=== PATIENT | female | born 1950 | race Hispanic/Latino ===

== ENCOUNTER 2019-03-17 06:58 | Emergency (ER) | payer OTHER, BC ==
--- OUTSIDE RECORDS SUMMARY | 2019-03-17 07:01 | XMS REPORT ---
:1950 Author Organization eClinicalWorks Care Team Providers Name Role Phone Kerry Lou Provider Role Unavailable Allergies, Adverse Reactions, Alerts Substance Reaction Event Type codeine Info Not Available Drug Allergy Problems Problem Type Condition Code Onset Dates Condition Status Problem Hypercalcemia E83.52 Active Problem Thrombocytosis D47.3 Active Problem Vitamin D deficiency E55.9 Active Problem Rash and nonspecific skin eruption R21 Active Problem Pain, joint, knee, left M25.562 Active Problem Essential hypertension I10 Active Problem Synovial cyst of popliteal space M71.22 Active [Tyson], left knee Problem Sensation of lump in throat R22.1 Active Problem 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 Active Problem Left sciatic nerve pain M54.32 Active Problem Allergic rhinitis, unspecified J30.9 Active seasonality, unspecified trigger Assessment Rash and nonspecific skin eruption R21 Active Assessment Hypertension, unspecified type I10 Active Problem Gastroesophageal reflux disease, K21.9 Active esophagitis presence not specified Problem Sinus problem J34.9 Active Problem Hypertension, unspecified type I10 Active Problem Allergic rhinitis, unspecified J30.9 Active Problem Therapeutic drug monitoring Z51.81 Active Problem Reflux K21.9 Active Medications Medication Code Code Instructions Start End Status Dosage System Date Date Amlodipine [facility] 97949987424 5 MG Orally Nov 22, Active 1 tablet Besylate Once a day 2017 PreserVision [facility] [address]-11 Active not defined [facility] Triamcinolone [facility] 58201285809 0.1 % Dec 20, Active 1 application Acetonide Externally 2019 to affected Twice a day area Vitamin D-3 [facility] [address]67-[address] Active not defined Vitamin C [facility] 41768-[address]80 Active not defined Ketoconazole [facility] 69145892630 2 % Externally Dec 10, Nov Inactive 1 application Once a day 2018 22, to affected 2019 area Zantac [facility] [address]-83 Active not defined Metoprolol [facility] 35141628898 25 mg Orally Dec 20, Active 1 capsule Succinate Once a day 2018 Losartan [facility] 20580355423 50 MG Orally Inactive 1 tablet Potassium Once a day Results No Known Results Summary Purpose eClinicalWorks Submission
--- OUTSIDE RECORDS SUMMARY | 2019-03-17 07:01 | XMS REPORT ---
:1950 [facility] Address [address] [place] [address] Care Team Providers Name Role Phone Unavailable Unavailable Unavailable Payers Payer Name Policy Type Policy Number Effective Date Expiration Date Problems This patient has no known problems. Allergies, Adverse Reactions, Alerts Allergy Name Allergy Status Severity Reaction(s) Onset Inactive Treating Comments Type Date Date Clinician morphine DA Active HI 2019-02 00:00:0 0 codeine DA Active 2019-02 00:00:0 0 clavulanic DA Active HI 2019-02 acid 00:00:0 0 amoxicillin DA Active HI 2019-02 00:00:0 0 SEASONAL DA Active HI 2019-02 00:00:0 0 Medications This patient has no known medications. Results Test Description Test Time Test Comments Text Results Atomic Results Result Comments - MRI JNT W/O CONT LT 2019-02-07 08:26:00 Patient Name: GERSON VALLEJO Unit No: [id number] EXAMS: CPT CODE: [id number] MRI JNT W/[place] [address] MRI OF THE LEFT KNEE DIAGNOSIS: 1. Complex macerated tear of the posterior horn of the medial meniscus near the meniscal root. Partial extrusion of the body of the meniscus is seen with degenerative signal. 2. Large effusion in the prepatellar bursa with bursitis. 3. 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 A moderate to large joint effusion is present without evidence for a loose body. There is a moderate popliteal cyst which contains irregular low signal most consistent with debris. COMMENT: COMPARISON: No prior exams available. Scans were performed in the sagittal, axial and coronal planes utilizing T1, spin density with fat saturation and T2-weighted pulse sequences. Chondromalacia is present as noted. No bony abnormalities are seen. The body and posterior horn the medial meniscus is abnormal as described. There is abnormal signal in the anterior root of the lateral meniscus most consistent with degeneration but possibly representing a tear. The posterior horn of the lateral meniscus and anterior horn of the medial meniscus are within normal limits in appearance. No abnormality is seen involving the anterior or posterior cruciate or medial or lateral collateral ligaments. The quadriceps and patellar tendons appear normal. at 0826 Reported and signed by: Lucas Kelly MD CC: Naila Ng MD Technologist: Star Galvan(R) Transcribed D/ (825) Gaetano.SHAYYL [facility] NAME: GERSON VALLEJO [address] [place] [address] PHYS: Naila Syed MD : 1950 AGE: 69 SEX: F [place] [address] LOC: Y.MRI PHONE #: [phone] EXAM DATE: 02/06/2019 STATUS: DEP CLI FAX #: [phone] RAD #: D/C DT PAGE 1 Signed Report Patient Name: GERSON VALLEJO Unit No: [id number] EXAMS: CPT CODE: [id number] MRI LW JNT W/[place] [address] <Continued> Orig Print D/T: S: 02/07/2019 (829) [facility] NAME: GERSON VALLEJO [address] [place] [address] PHYS: Naila Syed MD : 1950 AGE: 69 SEX: F [place] [address] LOC: Y.MRI PHONE #: [phone] EXAM DATE: 02/06/2019 STATUS: DEP CLI FAX #: [phone] RAD #: D/C DT PAGE 2 Signed Report
--- OUTSIDE RECORDS SUMMARY | 2019-03-17 07:01 | XMS REPORT ---
:1950 Author Organization eClinicalWorks Care Team Providers Name Role Phone ReedRolando Provider Role Unavailable Allergies, Adverse Reactions, Alerts Substance Reaction Event Type codeine Info Not Available Drug Allergy Problems Problem Type Condition Code Onset Dates Condition Status Assessment Synovial cyst of popliteal space M71.22 Active [Tyson], left knee Assessment 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 Active Problem Synovial cyst of popliteal space M71.22 Active [Tyson], left knee Problem 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 Active Problem Pain, joint, knee, left M25.562 Active Assessment Pain, joint, knee, left M25.562 Active Assessment Left sciatic nerve pain M54.32 Active Problem Left sciatic nerve pain M54.32 Active Medications Medication Code System Code Instructions Start Date End Date Status Dosage losartan NDC 0 Active not defined Zantac [facility] [address] Active not defined -01 Results No Known Results Summary Purpose [employer] Submission
--- OUTSIDE RECORDS SUMMARY | 2019-03-17 07:02 | XMS REPORT ---
:1950 Author Organization eClinicalWorks Care Team Providers Name Role Phone Rolando Reed Provider Role Unavailable Allergies, Adverse Reactions, Alerts Substance Reaction Event Type codeine Info Not Available Drug Allergy Problems Problem Type Condition Code Onset Dates Condition Status Assessment Patellar bursitis of left knee M70.52 Active Problem Vitamin D deficiency E55.9 Active Assessment 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 Active Problem Thrombocytosis D47.3 Active Assessment Synovial cyst of popliteal space M71.22 Active [Tyson], left knee Problem Sensation of lump in throat R22.1 Active Problem 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 Active Problem Left sciatic nerve pain M54.32 Active Problem Lumbago with sciatica, left side M54.42 Active Problem Other chronic pain G89.29 Active Assessment Pain, joint, knee, left M25.562 Active Problem Patellar bursitis of left knee M70.52 Active Assessment Left sciatic nerve pain M54.32 Active Problem Pain, joint, knee, left M25.562 Active Problem Synovial cyst of popliteal space M71.22 Active [Tyson], left knee Problem Rash and nonspecific skin eruption R21 Active Problem Essential hypertension I10 Active Problem Allergic rhinitis, unspecified J30.9 Active seasonality, unspecified trigger Problem Hypertension, unspecified type I10 Active Problem Allergic rhinitis, unspecified J30.9 Active Problem Gastroesophageal reflux disease, K21.9 Active esophagitis presence not specified Problem Reflux K21.9 Active Problem Hypercalcemia E83.52 Active Problem Therapeutic drug monitoring Z51.81 Active Problem Sinus problem J34.9 Active Medications Medication Code Code Instructions Start End Status Dosage System Date Date Vitamin C [facility] [address] Active not defined Vitamin D-3 [facility] [address]602-[address]82 Active not defined Triamcinolone [facility] 86502461107 0.1 % Dec 20, Active 1 application Acetonide Externally 2019 to affected Twice a day area Metoprolol [facility] 80586842261 25 mg Orally Dec 20, Active 1 capsule Succinate Once a day 2019 PreserVision [facility] [address]-93 Active not defined [facility] Gabapentin [facility] 10622400743 100 MG Orally December Active 1 capsule Three times a , 2019 Zantac [facility] [address]-13 Active not defined Amlodipine [facility] 56384814756 5 MG Orally Nov 22, Active 1 tablet Besylate Once a day 2017 Results No Known Results Summary Purpose eClinicalWorks Submission
--- OUTSIDE RECORDS SUMMARY | 2019-03-17 07:02 | XMS REPORT ---
:1950 Author Organization eClinicalWorks Care Team Providers Name Role Phone Lou Payne Provider Role Unavailable Allergies No Known Allergies Problems Problem Type Condition Code Onset Dates Condition Status Problem Sensation of lump in throat R22.1 Active Problem 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 Active Problem Left sciatic nerve pain M54.32 Active Problem Lumbago with sciatica, left side M54.42 Active Problem Other chronic pain G89.29 Active Problem Patellar bursitis of left knee M70.52 Active Problem Pain, joint, knee, left M25.562 [...] Problem Therapeutic drug monitoring Z51.81 Active Problem Vitamin D deficiency E55.9 Active Problem Sinus problem J34.9 Active Problem Thrombocytosis D47.3 Active Medications No Known Medications Results No Known Results Summary Purpose eClinicalWorks Submission
--- OUTSIDE RECORDS SUMMARY | 2019-03-17 07:02 | XMS REPORT ---
:1950 Author Organization eClinicalWorks Care Team Providers Name Role Phone Rolando Reed Provider Role Unavailable Allergies, Adverse Reactions, Alerts Substance Reaction Event Type Metoprolol Succinate ER HAs; bloating Drug Allergy Losartan Potassium Info Not Available Drug Allergy Problems Problem Type Condition Code Onset Dates Condition Status Problem Sensation of lump in throat R22.1 Active Problem 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 Active Problem Left sciatic nerve pain M54.32 Active Problem Lumbago with sciatica, left side M54.42 Active Problem Other chronic pain G89.29 Active Assessment Pain, joint, knee, left M25.562 Active Assessment Patellar bursitis of left knee M70.52 Active Problem Patellar bursitis of left knee [...] Problem Vitamin D deficiency E55.9 Active Assessment Left sciatic nerve pain M54.32 Active Problem Sinus problem J34.9 Active Problem Thrombocytosis D47.3 Active Medications Medication Code Code Instructions Start End Status Dosage System Date Date Lisinopril [facility] 85136299276 10 MG Orally Active 1 tablet Once a day PreserVision [facility] [address]-70 Active not defined [facility] Vitamin C [facility] [address]46[address] Active not defined Amlodipine [facility] 10660772064 5 MG Orally Nov 22, Active 1 tablet Besylate Once a day 2017 Gabapentin [facility] 70347343157 100 MG Orally December Active 1 capsule Three times a 13, day 2018 Zantac [facility] [address]-55 Active not defined Metoprolol [facility] 61956340081 25 mg Orally Dec 20, Active 1 capsule Succinate Once a day 2018 Vitamin D-3 [facility] [address]10-[address]79 Active not defined Triamcinolone [facility] 32479066055 0.1 % Dec 20, Active 1 application Acetonide Externally 2018 to affected Twice a day area Results No Known Results Summary Purpose eClinicalWorks Submission
--- OUTSIDE RECORDS SUMMARY | 2019-03-17 07:02 | XMS REPORT ---
:1950 Author Organization eClinicalWorks Care Team Providers Name Role Phone Lou Payne Provider Role Unavailable Allergies, Adverse Reactions, Alerts Substance Reaction Event Type Metoprolol Succinate ER HAs; bloating Drug Allergy Losartan Potassium Info Not Available Drug Allergy Problems Problem Type Condition Code Onset Dates Condition Status Assessment Lumbago with sciatica, left side M54.42 Active Assessment Other chronic pain G89.29 Active Problem Vitamin D deficiency E55.9 Active Assessment Pain in left knee M25.562 Active Problem Thrombocytosis D47.3 Active Assessment Dysuria R30.0 Active Problem Sensation of lump in throat R22.1 Active Problem 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 Active Problem Left sciatic nerve pain M54.32 Active Problem Lumbago with sciatica, left side M54.42 Active Problem Other chronic pain G89.29 Active Assessment Essential hypertension I10 Active Problem Patellar bursitis of left knee M70.52 Active Assessment Suprapubic pain R10.2 Active Problem Pain, joint, knee, left M25.562 [...] Status Dosage System Date Date Vitamin C [facility] [address] Active not defined Amlodipine ND 63699236634 5 MG Orally Nov 22, Active 1 tablet Besylate Once a day [address] [facility] 32015831995 25 mg Orally Dec 20, Active 1 capsule Succinate Once a day [address] [facility] 69951280192 0.1 % Dec 20, Active 1 application Acetonide Externally 2019 to affected Twice a day area Zantac [facility] [address]-91 Active not defined Vitamin D-[address] [facility] 8[address] Active not defined Gabapentin [facility] 19011526878 100 MG Orally December Active 1 capsule Three times a [address] [facility] 66136739355 10 MG Orally Active 1 tablet Once a day PreserVision [facility] [address]-02 Active not defined ARED[facility] Results Name Result Date Reference Range Unit Abnormality Flag Urine Dip Stick ----Appearance Clear 20190109 ----SP. Gr 1.010 20190109 ----pH 7.0 20190109 ----Ketone Negative 20190109 ----Glucose Negative 20190109 ----Blood Negative 20190109 ----Protein Negative 20190109 ----Nitrite Negative 20190109 ----Leukocytes Negative 20190109 Summary Purpose eClinicalWorks Submission
[2019-03-17 07:57] LABS: Absolute Lymphocytes (CBC) 2.2 K/uL (0.7-4.9); Absolute Monocytes 0.5 K/uL (0.1-1.3); Absolute Neutrophil 3.9 K/uL (1.8-8.0); Basophils % 0.7 % (0-1.3); Eosinophils % 1.8 % (0-4.4); Hematocrit 40.2 % (36.0-45.0); Lymphocytes % 32.3 % (15.3-44.8); MPV 7.3 fL (7.6-11.3); Monocytes % 6.9 % (3.3-12.3); RBC Red Blood Cell Count 4.32 M/uL (3.86-4.86)
--- NOTE | 2019-03-17 08:02 | RAD REPORT ---
EXAM DESCRIPTION: RAD - Chest Single View - 03/17/2019 7:37 am CLINICAL HISTORY: Chest pain COMPARISON: February 2017 TECHNIQUE: AP portable chest image was obtained 0727 hours . FINDINGS: No focal lung parenchymal process. Lung markings are similar to comparison. Heart and vasc ulature are normal. No measurable pleural effusion and no pneumothorax. No acute bony abnormality see n. No acute aortic findings suspected. IMPRESSION: No acute cardiopulmonary process. No significant interval change.
[2019-03-17] MEDS ORDERED: MAGNE/ALUM HYDROXD 30 ML UCUP ONE (08:09)
[2019-03-17] MEDS ORDERED: LIDOCAINE VISCOUS 2% SOLN 15 ML UDC ONE (08:09)
[2019-03-17 08:19] LABS: Potassium 3.9 mmol/L (3.5-5.1); Troponin (Emerg Dept Use Only) 0.03 ng/mL (0.0-0.045)
--- NOTE | 2019-03-17 10:26 | ER ---
Nurse's Notes [facility] Name: Zee Buenrostro Age: 69 yrs Sex: Female : 1950 Arrival Date: 03/17/2019 Time: 07:01 Bed 20 Private MD: Lou Payne Diagnosis: Chest pain, unspecified;Gastro-esophageal reflux disease Presentation: 03/17 07:12 Presenting complaint: Chest pain that radiates to upper back and SOB x 1 week, worse hb since 0300 today. Transition of care: patient was not received from another setting of care. Onset of symptoms was March 17, 2019. Risk Assessment: Do you want to hurt yourself or someone else? Patient reports no desire to harm self or others. Care prior to arrival: Medication(s) given: ASA, 81 mg, x 1. 07:12 Method Of Arrival: Ambulatory hb 07:12 Acuity: ELHAM 3 hb 07:15 Initial Sepsis Screen: Does the patient meet any 2 criteria? No. Patient's initial bp sepsis screen is negative. Does the patient have a suspected source of infection? No. Patient's initial sepsis screen is negative. Triage Assessment: 07:15 General: Appears in no apparent distress. comfortable, Behavior is cooperative, bp appropriate for age, anxious. Pain: Complains of pain in chest. Historical: - Allergies: 07:14 Augmentin; hb 07:14 Codeine; hb 07:14 Medrol; hb 07:14 Morphine; hb - Home Meds: 07:14 losartan 50 mg Oral tab 1 tab once daily [Active]; omeprazole 20 mg Oral cpDR 1 cap hb once daily [Active]; - PMHx: 07:14 GERD; Hypertension; Issues with Pancrease; hb - PSHx: 07:14 Cholecystectomy; Hysterectomy; breast reduction; back surg; hb - Immunization history:: Adult Immunizations up to date. - Social history:: Smoking status: Patient/guardian denies using tobacco. - Ebola Screening: : No symptoms or risks identified at this time. - Family history:: not pertinent. - Hospitalizations: : No recent hospitalization is reported. Screenin:14 Abuse screen: Denies threats or abuse. Denies injuries from another. Nutritional hb screening: No deficits noted. Tuberculosis screening: No symptoms or risk factors identified. 07:15 Fall Risk None identified. bp Assessment: 07:15 General: Appears in no apparent distress. comfortable, Behavior is cooperative, bp appropriate for age, anxious. Pain: Complains of pain in chest Pain does not radiate. Pain began suddenly. Neuro: Level of Consciousness is awake, alert, obeys commands, Oriented to person, place, time, situation, Appropriate for age. Cardiovascular: Rhythm is sinus rhythm. Respiratory: Airway is patent Respiratory effort is even, unlabored, Respiratory pattern is regular, symmetrical. GI: No deficits noted. : No signs and/or symptoms were reported regarding the genitourinary system. EENT: No deficits noted. Derm: No deficits noted. Musculoskeletal: Circulation, motion, and sensation intact. Range of motion: intact in all extremities. 08:10 Reassessment: ALL CURRENT ORDERS COMPLETED, RESULTS PENDING. VS STABLE ON MONITOR. bp 10:33 Reassessment: PT D/C HOME AMBULATORY WITH FAMILY, DX WITH GERD AND NONSPECIFIC CHEST bp PAIN. Vital Signs: 07:13 BP 194 / 78; Pulse 78; Resp 16; Temp 98.3; Pulse Ox 100% on R/A; Weight 77.11 kg; hb Height 5 ft. 3 in. (160.02 cm); Pain 5/10; 08:10 BP 162 / 64; Pulse 70; Resp 14; Pulse Ox 97% ; bp 09:18 BP 161 / 86; Pulse 63; Resp 18; Temp 97.4(TE); Pulse Ox 97% on R/A; mh5 10:05 BP 162 / 63; Pulse 65; Resp 18; Temp 97.8(O); Pulse Ox 97% on R/A; mh5 10:26 BP 149 / 69; Pulse 66; Resp 16; Temp 98; Pulse Ox 100% ; bp 07:13 Body Mass Index 30.11 (77.11 kg, 160.02 cm) hb ED Course: 07:01 Patient arrived in ED. as 07:01 Lou Payne MD is Private Physician. as 07:06 Moo Simmons MD is Attending Physician. rn 07:13 Triage completed. hb 07:13 Arm band placed on. hb 07:15 Reno Forde, RN is Primary Nurse. bp 07:15 EKG done, by breeder hen service technician. reviewed by Moo Simmons MD. at1 07:36 X-ray completed. Portable x-ray completed in exam room. Patient tolerated procedure sw well. 07:37 XRAY Chest (1 view) In Process Unspecified. EDMS 07:41 Patient has correct armband on for positive identification. Placed in gown. Bed in low bp position. Call light in reach. Side rails up X2. Adult w/ patient. media monitor on. Pulse ox on. NIBP on. 07:50 Initial lab(s) drawn, by pa, sent to lab. [facility] 10:10 EKG done, by breeder hen service technician. reviewed by Moo Simmons MD repeat EKG. at1 10:28 No provider procedures requiring assistance completed. IV discontinued, intact, bp bleeding controlled, No redness/swelling at site. Pressure dressing applied. Patient maintains SpO2 saturation greater than 95% on room air. Administered Medications: 07:30 Drug: GI Cocktail without - (Maalox Suspension 30 ml, Lidocaine Liquid 2 % 15 bp ml) Route: PO; 09:21 Follow up: Response: Marked relief of symptoms bp Outcome: 10:25 Discharge ordered by . rn 10:33 Discharged to home ambulatory, with family. bp 10:33 Condition: stable 10:33 Discharge instructions given to patient, Instructed on discharge instructions, follow up and referral plans. Demonstrated understanding of instructions, follow-up care. 10:35 Patient left the ED. bp Signatures: Dispatcher [employer] EDDE Loly Curiel Roman, MD MD rn Gonzales, Amanda, experimental rocket sled mechanic EKG Tat1 Kristie Bonds Heather, SIOBHAN MCCANN Zee Curiel [facility] Reno Forde, RN RN bp
--- NOTE | 2019-03-17 10:26 | EDPHYS ---
Physician Documentation [facility] Name: Zee Buenrostro Age: 69 yrs Sex: Female : 1950 Arrival Date: 03/17/2019 Time: 07:01 Bed 20 Private MD: Lou Payne ED Physician Moo Simmons HPI: 03/17 07:46 This 69 yrs old Female presents to ER via Ambulatory with complaints of Chest rn Pain. 07:46 The patient or guardian reports chest pain that is located primarily in the substernal rn area. Onset: last night. The pain radiates to back. The chest pain is described as burning. Duration: The patient or guardian reports multiple episodes, that are intermittent. Modifying factors: The symptoms are alleviated by nothing. the symptoms are aggravated by nothing. Severity of pain: At its worst the pain was mild in the emergency department the pain is unchanged. The patient has experienced a previous episode. The patient has been recently seen by a physician:. REports had laparoscopic left knee surgery last week, has felt fine since then, ambulatory, denies leg pain or swelling, no hx of dvt/pe, reports since last night chest pain and subjective sob, burning, not worse or better with anything. Reports + hx of acid reflux. Has had this before prior to surgery, ongoing for a month or so. Denies abd pain/vomiting. . Historical: - Allergies: 07:14 Augmentin; hb 07:14 Codeine; hb 07:14 Medrol; hb 07:14 Morphine; hb - Home Meds: 07:14 losartan 50 mg Oral tab 1 tab once daily [Active]; omeprazole 20 mg Oral cpDR 1 cap hb once daily [Active]; - PMHx: 07:14 GERD; Hypertension; Issues with Pancrease; hb - PSHx: 07:14 Cholecystectomy; Hysterectomy; breast reduction; back surg; hb - Immunization history:: Adult Immunizations up to date. - Social history:: Smoking status: Patient/guardian denies using tobacco. - Ebola Screening: : No symptoms or risks identified at this time. - Family history:: not pertinent. - Hospitalizations: : No recent hospitalization is reported. ROS: 07:46 Constitutional: Negative for fever, chills, and weight loss, Eyes: Negative for injury, rn pain, redness, and discharge, Neck: Negative for injury, pain, and swelling, Cardiovascular: + chest pain Respiratory: Negative for cough, wheezing Abdomen/GI: Negative for abdominal pain, nausea, vomiting, diarrhea, and constipation, MS/Extremity: Negative for injury and deformity, Skin: Negative for injury, rash, and discoloration, Neuro: Negative for headache, weakness, numbness, tingling, and seizure. Exam: 07:46 Constitutional: This is a well developed, well nourished patient who is awake, alert, rn and in no acute distress. Ambulatory to room without difficulty. Head/Face: Normocephalic, atraumatic. Eyes: Pupils equal round and reactive to light, extra-ocular motions intact. Lids and lashes normal. Conjunctiva and sclera are non-icteric and not injected. Cornea within normal limits. Periorbital areas with no swelling, redness, or edema. Cardiovascular: Regular rate and rhythm. No pulse deficits. Respiratory: Lungs have equal breath sounds bilaterally, clear to auscultation. No increased work of breathing, no retractions or nasal flaring. Abdomen/GI: soft, non-tender MS/ Extremity: Pulses equal, no cyanosis. Neurovascular intact. Full, normal range of motion. Equal circumference. Steri-strips present over left knee, no distal swelling or tenderness. Neuro: Awake and alert, GCS 15, oriented to person, place, time, and situation. Cranial nerves II-XII grossly intact. Motor strength 5/5 in all extremities. Sensory grossly intact. Cerebellar exam normal. Normal gait. 07:53 ECG was reviewed by the Attending Physician. rn Vital Signs: 07:13 BP 194 / 78; Pulse 78; Resp 16; Temp 98.3; Pulse Ox 100% on R/A; Weight 77.11 kg; hb Height 5 ft. 3 in. (160.02 cm); Pain 5/10; 08:10 BP 162 / 64; Pulse 70; Resp 14; Pulse Ox 97% ; bp 09:18 BP 161 / 86; Pulse 63; Resp 18; Temp 97.4(TE); Pulse Ox 97% on R/A; mh5 10:05 BP 162 / 63; Pulse 65; Resp 18; Temp 97.8(O); Pulse Ox 97% on R/A; mh5 10:26 BP 149 / 69; Pulse 66; Resp 16; Temp 98; Pulse Ox 100% ; bp 07:13 Body Mass Index 30.11 (77.11 kg, 160.02 cm) hb MDM: 07:06 Patient medically screened. rn 09:19 Response to treatment: the patient's symptoms have resolved after treatment, the rn patient's condition has returned to base line, the patient is now symptom free, IMproved with GI cocktail, no sob/chest pain. . ED course: Trop neg, d-dimer neg, xray normal, no change in ECG, still LVH, will get repeat troponin and ecg, and anticipate dc home if normal. Will continue antacids and given return precautions.. 10:08 ED course: NO change in ECG, repeat trop pending.. rn 10:24 Differential diagnosis: acute myocardial infarction, acute pericarditis, anxiety, chest rn wall pain, esophagitis, gastritis, gastroesophageal reflux disease (GERD), pancreatitis, peptic ulcer disease, pleurisy, pulmonary embolus. Data reviewed: vital signs, nurses notes, lab test result(s), EKG, radiologic studies, plain films, and as a result, I will discharge patient. Counseling: I had a detailed discussion with the patient and/or guardian regarding: the historical points, exam findings, and any diagnostic results supporting the discharge/admit diagnosis, lab results, radiology results, the need for outpatient follow up, to return to the emergency department if symptoms worsen or persist or if there are any questions or concerns that arise at home. Special discussion: Based on the patient's history, exam, and Dx evaluation, there is no indication for emergent intervention or inpatient Tx. It is understood by the patient/guardian that if the Sx's persist or worsen they need to return immediately for re-evaluation. I discussed with the patient/guardian in detail that at this point there is no indication for admission to the hospital. It is understood, however, that if the symptoms persist or worsen the patient needs to return immediately for re-evaluation. 03/17 07:13 Order name: Basic Metabolic Panel; Complete Time: 08: rn 03/17 07:13 Order name: CBC with Diff; Complete Time: 08: rn 03/17 07:13 Order name: NT PRO-BNP; Complete Time: 08: rn 03/17 07:13 Order name: Troponin (emerg Dept Use Only); Complete Time: 08: rn 03/17 07:13 Order name: D-Dimer; Complete Time: 08:09 rn 03/17 07:14 Order name: Lipase; Complete Time: 08:23 rn 03/17 07:13 Order name: XRAY Chest (1 view); Complete Time: 08:09 rn 03/17 07:13 Order name: EKG; Complete Time: 07:14 rn 03/17 07:13 Order name: Cardiac monitoring; Complete Time: 07:24 rn 03/17 07:13 Order name: EKG - Nurse/Tech; Complete Time: 07:24 rn 03/17 07:13 Order name: IV Saline Lock; Complete Time: 07:24 rn 03/17 09:21 Order name: EKG; Complete Time: 09:22 bp 03/17 09:21 Order name: Troponin (emerg Dept Use Only); Complete Time: 10:24 bp 03/17 07:13 Order name: Labs collected and sent; Complete Time: 07:52 rn 03/17 07:13 Order name: O2 Per Protocol; Complete Time: 07: rn 03/17 07:13 Order name: O2 Sat Monitoring; Complete Time: 07: rn 03/17 09:21 Order name: EKG - Nurse/Tech; Complete Time: 10:20 bp EC:53 Rate is 71 beats/min. Rhythm is regular. QRS [place] is Normal. [place] interval is normal. QRS rn interval is normal. QT interval is normal. No Q waves. T waves are Inverted in leads I, aVL, V5, V6. No ST changes noted. Clinical impression: NSR w/ Non-specific ST/T Changes and LVH. Interpreted by me. Reviewed by me. Administered Medications: 07:30 Drug: GI Cocktail without - (Maalox Suspension 30 ml, Lidocaine Liquid 2 % 15 bp ml) Route: PO; 09:21 Follow up: Response: Marked relief of symptoms bp Disposition: 03/17/19 10:25 Discharged to Home. Impression: Chest pain, unspecified, Gastro-esophageal reflux disease. - Condition is Stable. - Discharge Instructions: Nonspecific Chest Pain, Gastroesophageal Reflux Disease, Adult. - Medication Reconciliation Form, Thank You Letter, Antibiotic Education, Prescription Opioid Use form. - Follow up: Private Physician; When: As needed; Reason: Recheck today's complaints, Re-evaluation by your physician. - Problem is new. - Symptoms have improved. Signatures: Dispatcher [employer] EDMoo Ospina MD MD rn Baxter, Heather, RN RN hb Peltier, Brian, RN RN bp Corrections: (The following items were deleted from the chart) 10:35 10:25 03/17/2019 10:25 Discharged to Home. Impression: Chest pain, unspecified; bp Gastro-esophageal reflux disease. Condition is Stable. Forms are Medication Reconciliation Form, Thank You Letter, Antibiotic Education, Prescription Opioid Use. Follow up: Private Physician; When: As needed; Reason: Recheck today's complaints, Re-evaluation by your physician. Problem is new. Symptoms have improved. rn
--- NOTE | 2019-03-17 12:50 | EKG ---
Test Date: 2019-03-17 Test Time: 10:07:08 Buying Agent: JONI MEASUREMENT RESULTS: Intervals: Rate: 64 VT: 150 QRSD: 80 QT: 412 QTc: 425 [place]: P: 1 VT: 150 QRS: 2 T: 129 INTERPRETIVE STATEMENTS: Normal sinus rhythm Left ventricular hypertrophy with repolarization abnormality Abnormal ECG Compared to ECG 03/17/2019 07:15:45 No significant changes Electronically Signed On 03-17-19 12:49:57 CDT by Nico Goetz
--- NOTE | 2019-03-17 12:51 | EKG ---
Test Date: 2019-03-17 Test Time: 07:15:45 Quality Assurance Engineer: JONI MEASUREMENT RESULTS: Intervals: Rate: 71 [place]: 152 QRSD: 80 QT: 364 QTc: 395 [place]: P: 25 [place]: 152 QRS: 3 T: 127 INTERPRETIVE STATEMENTS: Normal sinus rhythm Left ventricular hypertrophy with repolarization abnormality Abnormal ECG Compared to ECG 04/12/2018 13:21:21 Left ventricular hypertrophy now present Early repolarization now present ST (T wave) deviation no longer present Possible ischemia no longer present Electronically Signed On 03-17-19 12:50:13 CDT by Nico Goetz
== END 2019-03-17 10:35 | disposition home or self-care (01) ==
LOC: ER 06:58
DX: K21.9 Gastro-esophageal reflux disease without esophagitis (principal)
CPT/HCPCS: 36415; 71045; 80048; 83690; 83880; 84484; 85025; 85379; 93005; 99285

== ENCOUNTER 2019-05-01 12:58 | Emergency (ER) | payer OTHER, BC ==
--- OUTSIDE RECORDS SUMMARY | 2019-05-01 13:01 | XMS REPORT ---
[...] Status Dosage System Date Date Vitamin C [facility] [address] Active not defined Vitamin D-[address] [facility] [address]2286 Active not defined Triamcinolone [facility] 21845166769 0.1 % Dec 20, Active 1 application Acetonide Externally 2019 to affected Twice a day area Metoprolol [facility] 55571251750 25 mg Orally Dec 20, Active 1 capsule Succinate Once a day 2019 PreserVision NDC [address]-88 Active not defined [facility] Gabapentin [facility] 21366262344 100 MG Orally December Active 1 capsule Three times a , [address] [facility] [address]-73 Active not defined Amlodipine [facility] 16256701978 5 MG Orally Nov 22, Active 1 tablet Besylate Once a day 2017 Results No Known Results Summary Purpose eClinicalWorks Submission
--- OUTSIDE RECORDS SUMMARY | 2019-05-01 13:01 | XMS REPORT ---
[...] End Status Dosage System Date Date Amlodipine [facility] 84391567021 5 MG Orally Nov 22, Active 1 tablet Besylate Once a day 2017 PreserVision [facility] [address]-50 Active not defined [facility] Triamcinolone [facility] 56522096154 0.1 % Dec 20, Active 1 application Acetonide Externally 2019 to affected Twice a day area Vitamin D-3 [facility] [address]71-93388 Active not defined Vitamin C [facility] 03162-[address] Active not defined Ketoconazole [facility] 30397526813 2 % Externally Dec 10, Nov Inactive 1 application Once a day 2018 22, to affected 2019 area Zantac [facility] [address]-84 Active not defined Metoprolol [facility] 36772390045 25 mg Orally Dec 20, Active 1 capsule Succinate Once a day 2018 Losartan [facility] 87910187750 50 MG Orally Inactive 1 tablet Potassium Once a day Results No Known Results Summary Purpose eClinicalWorks Submission
--- OUTSIDE RECORDS SUMMARY | 2019-05-01 13:01 | XMS REPORT ---
[...] Status Dosage System Date Date Vitamin C [facility] [address] Active not defined Amlodipine ND 38131608853 5 MG Orally Nov 22, Active 1 tablet Besylate Once a day 2017 Metoprolol [facility] 28869125436 25 mg Orally Dec 20, Active 1 capsule Succinate Once a day 2018 Triamcinolone [facility] 15969522703 0.1 % Dec 20, Active 1 application Acetonide Externally 2019 to affected Twice a day area Zantac [facility] [address]-72 Active not defined Vitamin D-3 [facility] [address] Active not defined Gabapentin [facility] 77820230144 100 MG Orally December Active 1 capsule Three times a 2018 Lisinopril [facility] 06690633589 10 MG Orally Active 1 tablet Once a day PreserVision [facility] [address]-77 Active not defined [facility] Results Name Result Date Reference Range Unit Abnormality Flag Urine Dip Stick ----Appearance Clear 20190109 ----SP. Gr 1.010 20190109 ----pH 7.0 20190109 ----Ketone Negative 20190109 ----Glucose Negative 20190109 ----Blood Negative 20190109 ----Protein Negative 20190109 ----Nitrite Negative 20190109 ----Leukocytes Negative 20190109 Summary Purpose eClinicalWorks Submission
--- OUTSIDE RECORDS SUMMARY | 2019-05-01 13:01 | XMS REPORT ---
[...] End Status Dosage System Date Date Lisinopril [facility] 16673835641 10 MG Orally Active 1 tablet Once a day PreserVision [facility] [address]-35 Active not defined [facility] Vitamin C [facility] [address] Active not defined Amlodipine [facility] 59936975169 5 MG Orally Nov 22, Active 1 tablet Besylate Once a day 2017 Gabapentin [facility] 53732619758 100 MG Orally December Active 1 capsule Three times a 13, day 2018 Zantac [facility] [address]-29 Active not defined Metoprolol [facility] 74755146047 25 mg Orally Dec 20, Active 1 capsule Succinate Once a day 2018 Vitamin D-3 [facility] 42333-[address] Active not defined Triamcinolone [facility] 77979193675 0.1 % Dec 20, Active 1 application Acetonide Externally 2018 to affected Twice a day area Results No Known Results Summary Purpose eClinicalWorks Submission
--- OUTSIDE RECORDS SUMMARY | 2019-05-01 13:01 | XMS REPORT ---
:1950 [facility] Address [address] [place] [address] Care Team Providers Name Role Phone Unavailable Unavailable Unavailable Payers Payer Name Policy Type Policy Number Effective Date Expiration Date Problems This patient has no known problems. Allergies, Adverse Reactions, Alerts Allergy Name Allergy Status Severity Reaction(s) Onset Inactive Treating Comments Type Date Date Clinician morphine DA Active SC 2019-02 00:00:0 0 codeine DA Active 2019-02 00:00:0 0 clavulanic DA Active SC 2019-02 acid 00:00:0 0 amoxicillin DA Active SC 2019-02 00:00:0 0 SEASONAL DA Active SC 2019-02 00:00:0 0 Medications This patient has no known medications. Results Test Description Test Time Test Comments Text Results Atomic Results Result Comments - DUP VEIN UNI/LTD 2019-03-26 15:53:00 Patient Name: GERSON VALLEJO Unit No: [id number] EXAMS: CPT CODE: [id number] DUP VEIN UNI/LTD 13134 FINDINGS: Left lower extremity grayscale and Doppler venous ultrasound demonstrates normal flow and luminal compressibility without evidence of intraluminal thrombus. IMPRESSION: No evidence of DVT within deep venous structures of the left lower extremity. at 1553 Reported and signed by: Bernard Delgadillo M.D. CC: Daniel Guerrero MD Technologist: EDWIN NARAYANAN RDMS, RVT Transcribed D/ (4535) EugenioSLJ [facility] NAME: GERSON VALLEJO [address] [facility] PHYS: Daniel Whitehead : 1950 AGE: 69 SEX: F [place] [phone] LOC: Y.RAD PHONE #: [phone] EXAM DATE: 03/26/2019 STATUS: REG CLI FAX #: [phone] RAD #: D/C DT PAGE 1 Signed Report Patient Name: GERSON VALLEJO Unit No: [id number] EXAMS: CPT CODE: [id number] [facility] [address] <Continued> Orig Print D/T: S: 03/26/2019 (9254) [facility] NAME: GERSON VALLEJO [facility] PHYS: Daniel Whitehead : 1950 AGE: 69 SEX: F [place] [address] LOC: Y.RAD PHONE #: [phone] EXAM DATE: 03/26/2019 STATUS: REG CLI FAX #: [phone] RAD #: D/C DT PAGE 2 Signed Report - MRI LW JNT W/O CONT LT 2019-02-07 08:26:00 Patient Name: GERSON VALLEJO Unit No: [id number] EXAMS: CPT CODE: [id number] MRI LW JNT W/[place] [address] MRI OF THE LEFT KNEE DIAGNOSIS: 1. [...] MD Technologist: Star Galvan(R) Transcribed D/ (825) T[place] [facility] NAME: GERSON VALLEJO [address] [place] [address] PHYS: Naila Syde MD : 1950 AGE: 69 SEX: F [place] [address] LOC: Y.MRI PHONE #: [phone] EXAM DATE: 02/06/2019 STATUS: DEP CLI FAX #: [phone] RAD #: D/C DT PAGE 1 Signed Report Patient Name: GERSON VALLEJO Unit No: [id number] EXAMS: CPT CODE: [id number] MRI LW JNT W/[place] [address] <Continued> Orig Print D/T: S: 02/07/2019 (829) [facility] NAME: GERSON VALLEJO [address] [place] [address] PHYS: Naila Syed MD : 1950 AGE: 69 SEX: F [place] [phone] LOC: Y.MRI PHONE #: [phone] EXAM DATE: 02/06/2019 STATUS: DEP CLI FAX #: [phone] RAD #: D/C DT PAGE 2 Signed Report
--- OUTSIDE RECORDS SUMMARY | 2019-05-01 13:01 | XMS REPORT ---
[...] 0 Active not defined Zantac [facility] [address] Active not defined -01 Results No Known Results Summary Purpose [employer] Submission
--- NOTE | 2019-05-01 14:00 | RAD REPORT ---
EXAM DESCRIPTION: CT - Head Brain Wo Cont - 05/01/2019 1:43 pm CLINICAL HISTORY: Headache COMPARISON: None. TECHNIQUE: Computed axial tomography of the head was obtained. IV contrast was not requested. All CT scans are performed using dose optimization technique as appropriate and may include automated exposure control or mA/KV adjustment according to patient size. FINDINGS: An intracranial bleed is not seen . The ventricles are normal in caliber. No extra-axial fluid collection is noted. Fluid within the sinuses/ mastoids is not seen. IMPRESSION: No acute intracranial abnormality is seen. If patient's symptoms persist MRI of the bra in would be recommended.
[2019-05-01] MEDS ORDERED: METOCLOPRAMIDE 10 MG/2mL INJ ONE (14:06)
[2019-05-01] MEDS ORDERED: DIPHENHYDRAMINE 50 MG/ML VIAL ONE (14:06)
[2019-05-01] MEDS ORDERED: NA CHLORIDE 0.9% 500 ML ONE (14:07)
[2019-05-01] MEDS ORDERED: BENZTROPINE 2 MG/2 ML VIAL ONE (14:37)
--- NOTE | 2019-05-01 15:10 | EDPHYS ---
Physician Documentation [facility] Name: Zee Buenrostro Age: 69 yrs Sex: Female : 1950 Arrival Date: 05/01/2019 Time: 13:00 Bed 20 Private MD: Gianfranco Denton V ED Physician Mateo Rios HPI: 05/01 13:12 This 69 yrs old Female presents to ER via Ambulatory with complaints of jmm Headache. 13:12 The patient complains of pain to the left occipital area and right occipital area. jmm Onset: The symptoms/episode began/occurred gradually, 3 week(s) ago. Associated signs and symptoms: Pertinent positives: nausea, Pertinent negatives: fever, neck stiffness. This is a 69 year old female with a history of GERD, HTN that presents to the ED with complaints of headache which has been intermittent over the past 3 weeks. Patient was initially diagnosed with a sinus infection and prescribed antibiotics which gave the patient initial relief. Patient headache has returned. Denies fever, denies neck stiffness. . Historical: - Allergies: 13:07 Augmentin; aa5 13:07 Codeine; aa5 13:07 Medrol; aa5 13:07 Morphine; aa5 - Home Meds: 13:07 omeprazole 20 mg Oral cpDR 1 cap once daily [Active]; lisinopril 10 mg oral tab once aa5 daily [Active]; amlodipine 5 mg tab once daily [Active]; - PMHx: 13:07 GERD; Hypertension; aa5 - PSHx: 13:07 Cholecystectomy; Hysterectomy; breast reduction; back surg; aa5 - Immunization history:: Flu vaccine is not up to date. - Social history:: Smoking status: Patient/guardian denies using tobacco. - Ebola Screening: : No symptoms or risks identified at this time. ROS: 13:12 Constitutional: Negative for fever, chills, and weight loss, Neck: Negative for injury, jmm pain, and swelling, Cardiovascular: Negative for chest pain, palpitations, and edema, Respiratory: Negative for shortness of breath, cough, wheezing, and pleuritic chest pain. 13:12 Neuro: Positive for headache. 13:12 All other systems are negative. Exam: 13:12 Constitutional: This is a well developed, well nourished patient who is awake, alert, jmm and in no acute distress. Head/Face: atraumatic. Eyes: EOMI, no conjunctival erythema appreciated ENT: Moist Mucus Membranes Neck: Trachea midline, Supple Chest/axilla: Normal chest wall appearance and motion. Cardiovascular: Regular rate and rhythm. No edema appreciated Respiratory: Normal respirations, no respiratory distress appreciated Abdomen/GI: Non distended, soft Back: Normal ROM Skin: General appearance color normal MS/ Extremity: Moves all extremities, no obvious deformities appreciated, no edema noted to the lower extremities 13:12 Neuro: Orientation: is normal, Mentation: is normal, Memory: is normal, Motor: is normal, Gait: is steady. 13:12 Psych: Behavior/mood is pleasant, cooperative. Vital Signs: 13:07 BP 151 / 79; Pulse 93; Resp 16 S; Temp 98.6(TE); Pulse Ox 97% on R/A; Weight 63.5 kg aa5 (R); Height 5 ft. 2 in. (157.48 cm) (R); Pain 4/10; 14:00 BP 167 / 75; Pulse 112; Resp 20; Pulse Ox 99% ; bp 15:32 BP 133 / 64; Pulse 79; Resp 17; Temp 98.5(O); Pulse Ox 99% on R/A; rb1 13:07 Body Mass Index 25.61 (63.50 kg, 157.48 cm) aa5 MDM: 13:12 Patient medically screened. [facility] 15:08 Data reviewed: vital signs, nurses notes. Counseling: I had a detailed discussion with [facility] the patient and/or guardian regarding: the historical points, exam findings, and any diagnostic results supporting the discharge/admit diagnosis, radiology results, the need for outpatient follow up, to return to the emergency department if symptoms worsen or persist or if there are any questions or concerns that arise at home. 15:55 ED course: Headache relieved in the ED. Patient neck is supple, patient non toxic in jmm appearance in the ED. I do not suspect SAH or meningitis. Patient advised to follow up with Neurology and otherwise given strict return precautions. patient understood and agrees with the plan of care. . 05/01 13:31 Order name: CT Head Brain wo Cont; Complete Time: 14:05 [facility] 05/01 13:31 Order name: Saline Lock; Complete Time: 14:01 [facility] Administered Medications: 13:45 Drug: NS 0.9% 500 ml Route: IV; Rate: bolus; Site: right forearm; bp 13:45 Drug: Reglan 10 mg Route: IVP; Site: right forearm; bp 13:45 Drug: diphenhydrAMINE 12.5 mg Route: IVP; Site: right forearm; bp 14:30 CANCELLED (Patient Refused): COgentin 1 mg IVP once bp Disposition: 05/01/19 15:09 Discharged to Home. Impression: Headache. - Condition is Stable. - Discharge Instructions: General Headache Without Cause. - Medication Reconciliation Form, Thank You Letter, Antibiotic Education, Prescription Opioid Use form. - Follow up: Arben Hdz MD; When: 2 - 3 days; Reason: Recheck today's complaints, Continuance of care, Re-evaluation by your physician. Addendum: 05/07/2019 16:41 Co-signature as Attending Physician, Mateo Rios MD I agree with the assessment and c benoit plan of care. Signatures: Dispatcher [employer] EDIL Mateo Rios MD MD cha Mickail, Joel, PA PA [facility] Maryse Hassan, RN RN aa5 Apple Riley, RN RN rb1 Reno Forde RN RN bp Corrections: (The following items were deleted from the chart) 05/01 14:30 14:20 COgentin 1 mg IVP once ordered. [facility] bp 15:35 15:09 05/01/2019 15:09 Discharged to Home. Impression: Headache. Condition is Stable. rb1 Forms are Medication Reconciliation Form, Thank You Letter, Antibiotic Education, Prescription Opioid Use. Follow up: Arben Hdz; When: 2 - 3 days; Reason: Recheck today's complaints, Continuance of care, Re-evaluation by your physician. [facility]
--- NOTE | 2019-05-01 15:10 | ER ---
Nurse's Notes [facility] Name: Zee Buenrostro Age: 69 yrs Sex: Female : 1950 Arrival Date: 05/01/2019 Time: 13:00 Bed 20 Private MD: Gianfranco Denton V Diagnosis: Headache Presentation: 05/01 13:05 Presenting complaint: Patient states: "I've had this headache for a while now and Dr. darryl Denton actually ordered and MRI of my head about 2 weeks ago but I was so busy and never got it done". Pt also reports nausea. Transition of care: patient was not received from another setting of care. Onset of symptoms was March 2019. Risk Assessment: Do you want to hurt yourself or someone else? Patient reports no desire to harm self or others. Initial Sepsis Screen: Does the patient meet any 2 criteria? No. Patient's initial sepsis screen is negative. Does the patient have a suspected source of infection? No. Patient's initial sepsis screen is negative. Care prior to arrival: None. 13:05 Method Of Arrival: Ambulatory aa 13:05 Acuity: ELHAM 3 aa5 Triage Assessment: 13:10 Headache History: The patient has had previous headaches and this one is similar to bp previous episodes. General: Appears in no apparent distress. uncomfortable, Behavior is cooperative, appropriate for age, anxious. Pain: Complains of pain in head Pain currently is 7 out of 10 on a pain scale. Pain began 1 day ago. Also complains of no other associated symptoms. EENT: No deficits noted. Neuro: No deficits noted. Cardiovascular: No deficits noted. Respiratory: No deficits noted. GI: No signs and/or symptoms were reported involving the gastrointestinal system. : No signs and/or symptoms were reported regarding the genitourinary system. Derm: No deficits noted. Musculoskeletal: No deficits noted. Historical: - Allergies: 13:07 Augmentin; aa5 13:07 Codeine; aa5 13:07 Medrol; aa5 13:07 Morphine; aa5 - Home Meds: 13:07 omeprazole 20 mg Oral cpDR 1 cap once daily [Active]; lisinopril 10 mg oral tab once aa5 daily [Active]; amlodipine 5 mg tab once daily [Active]; - PMHx: 13:07 GERD; Hypertension; aa5 - PSHx: 13:07 Cholecystectomy; Hysterectomy; breast reduction; back surg; aa5 - Immunization history:: Flu vaccine is not up to date. - Social history:: Smoking status: Patient/guardian denies using tobacco. - Ebola Screening: : No symptoms or risks identified at this time. Screenin:47 Abuse screen: Denies threats or abuse. Denies injuries from another. Nutritional bp screening: No deficits noted. Tuberculosis screening: No symptoms or risk factors identified. Fall Risk None identified. Assessment: 13:10 General: SEE TRIAGE NOTE. Pain: Complains of pain in head. Neuro: Level of bp Consciousness is awake, alert, obeys commands, Oriented to person, place, time, situation, Appropriate for age. 13:46 Reassessment: PT RETURNED FROM CT. bp 14:17 Reassessment: PT REPORTING ADVERSE REACTION (ANXIETY) IN RESPONSE TO BENADRYL IV. bp PROVIDER NOTIFIED. 15:45 Reassessment: PT D/C HOME AMBULATORY WITH FAMILY, DX WITH HEADACHE. bp Vital Signs: 13:07 BP 151 / 79; Pulse 93; Resp 16 S; Temp 98.6(TE); Pulse Ox 97% on R/A; Weight 63.5 kg aa5 (R); Height 5 ft. 2 in. (157.48 cm) (R); Pain 4/10; 14:00 BP 167 / 75; Pulse 112; Resp 20; Pulse Ox 99% ; bp 15:32 BP 133 / 64; Pulse 79; Resp 17; Temp 98.5(O); Pulse Ox 99% on R/A; rb1 13:07 Body Mass Index 25.61 (63.50 kg, 157.48 cm) aa5 ED Course: 13:00 Patient arrived in ED. as 13:00 Gianfranco Denton MD is Private Physician. as 13:04 Arm band placed on. aa5 13:06 Triage completed. aa5 13:09 Antwon Aguila PA is PHCP. [facility] 13:09 Mateo Rios MD is Attending Physician. jmm 13:12 Reno Forde, SIOBHAN is Primary Nurse. bp 13:42 CT Head Brain wo Cont In Process Unspecified. EDMS 13:45 Inserted saline lock: 20 gauge in right forearm, using aseptic technique. bp 13:47 Patient has correct armband on for positive identification. Placed in gown. Bed in low bp position. Call light in reach. Side rails up X2. Adult w/ patient. 15:09 Arben Hdz MD is Referral Physician. [facility] 15:34 No provider procedures requiring assistance completed. IV discontinued, intact, rb1 bleeding controlled, No redness/swelling at site. Pressure dressing applied. Administered Medications: 13:45 Drug: NS 0.9% 500 ml Route: IV; Rate: bolus; Site: right forearm; bp 13:45 Drug: Reglan 10 mg Route: IVP; Site: right forearm; bp 13:45 Drug: diphenhydrAMINE 12.5 mg Route: IVP; Site: right forearm; bp 14:30 CANCELLED (Patient Refused): COgentin 1 mg IVP once bp Outcome: 15:09 Discharge ordered by . [facility] 15:34 Discharged to home ambulatory, with family. rb1 15:34 Condition: stable 15:34 Discharge instructions given to patient, Instructed on discharge instructions, follow up and referral plans. Demonstrated understanding of instructions, follow-up care, Prescriptions given X none 15:35 Patient left the ED. rb1 Signatures: Dispatcher [employer] EDMS Antwon Aguila PA PA jmm Martinez, Amelia as Maryse Hassan, RN RN aa5 Apple Riley, RN RN rb1 Reno Forde, RN RN bp
== END 2019-05-01 15:35 | disposition home or self-care (01) ==
LOC: ER 12:58
DX: R51 Headache (principal); I10 Essential (primary) hypertension; K21.9 Gastro-esophageal reflux disease without esophagitis; Z88.1 Allergy status to other antibiotic agents; Z88.5 Allergy status to narcotic agent; Z88.8 Allergy status to other drugs, medicaments and biological substances
CPT/HCPCS: 70450; 96375; 96374; 99284; J2765; J0515

== ENCOUNTER 2019-05-13 12:05 | Observation (INO) | payer OTHER, BC ==
--- OUTSIDE RECORDS SUMMARY | 2019-05-13 12:32 | XMS REPORT ---
[...] End Status Dosage System Date Date Amlodipine [facility] 58685865451 5 MG Orally Nov 22, Active 1 tablet Besylate Once a day 2017 PreserVision [facility] [address]-94 Active not defined AREDS Triamcinolone [facility] 76376955670 0.1 % Dec 20, Active 1 application Acetonide Externally 2019 to affected Twice a day area Vitamin D-3 [facility] [address] Active not defined Vitamin C [facility] 50[address] Active not defined Ketoconazole [facility] 83714656333 2 % Externally Dec 10, Nov Inactive 1 application Once a day 2018 22, to affected 2019 area Zantac [facility] [address]-95 Active not defined Metoprolol [facility] 10094554053 25 mg Orally Dec 20, Active 1 capsule Succinate Once a day 2018 Losartan [facility] 64414953194 50 MG Orally Inactive 1 tablet Potassium Once a day Results No Known Results Summary Purpose eClinicalWorks Submission
--- OUTSIDE RECORDS SUMMARY | 2019-05-13 12:32 | XMS REPORT ---
[...] Status Dosage System Date Date Vitamin C [facility] [address] Active not defined Amlodipine ND 17927698913 5 MG Orally Nov 22, Active 1 tablet Besylate Once a day 2017 Metoprolol [facility] 93293482569 25 mg Orally Dec 20, Active 1 capsule Succinate Once a day 2018 Triamcinolone [facility] 03649897834 0.1 % Dec 20, Active 1 application Acetonide Externally 2019 to affected Twice a day area Zantac [facility] [address]-55 Active not defined Vitamin D-3 [facility] [address]12 Active not defined Gabapentin [facility] 97976372959 100 MG Orally December Active 1 capsule Three times a 2018 Lisinopril [facility] 28292523623 10 MG Orally Active 1 tablet Once a day PreserVision [facility] [address]-88 Active not defined AREDS Results Name Result Date Reference Range Unit Abnormality Flag Urine Dip Stick ----Appearance Clear 20190109 ----SP. Gr 1.010 20190109 ----pH 7.0 20190109 ----Ketone Negative 20190109 ----Glucose Negative 20190109 ----Blood Negative 20190109 ----Protein Negative 20190109 ----Nitrite Negative 20190109 ----Leukocytes Negative 20190109 Summary Purpose eClinicalWorks Submission
--- OUTSIDE RECORDS SUMMARY | 2019-05-13 12:32 | XMS REPORT ---
:1950 [facility] Address [address] [place] [address] Care Team Providers Name Role Phone Unavailable Unavailable Unavailable Payers Payer Name Policy Type Policy Number Effective Date Expiration Date Problems This patient has no known problems. Allergies, Adverse Reactions, Alerts Allergy Name Allergy Status Severity Reaction(s) Onset Inactive Treating Comments Type Date Date Clinician morphine DA Active DE 2019-02 00:00:0 0 codeine DA Active 2019-02 00:00:0 0 clavulanic DA Active DE 2019-02 acid - 00:00:0 0 amoxicillin DA Active DE 2019-02 00:00:0 0 SEASONAL DA Active DE 2019-02 00:00:0 0 Medications This patient has no known medications. Results Test Description Test Time Test Comments Text Results Atomic Results Result Comments - [facility]IN UNI/LTD 2019-03-26 15:53:00 Patient Name: GERSON VALLEJO Unit No: [id number] EXAMS: CPT CODE: [id number] [facility] 15265 FINDINGS: Left lower extremity grayscale and Doppler venous ultrasound demonstrates normal flow and luminal compressibility without evidence of intraluminal thrombus. IMPRESSION: No evidence of DVT within deep venous structures of the left lower extremity. at 1553 Reported and signed by: Bernard Delgadillo M.D. CC: Daniel Guerrero MD Technologist: EDWIN N NARAYANAN, RDMS, RVT Transcribed D/ (3191) [email or web address] [facility] NAME: GERSON VALLEJO [address] [facility] PHYS: Daniel Whitehead : 1950 AGE: 69 SEX: F [place] [address] LOC: Y.RAD PHONE #: [phone] EXAM DATE: 03/26/2019 STATUS: REG CLI FAX #: [phone] RAD #: D/C DT PAGE 1 Signed Report Patient Name: GERSON VALLEJO Unit No: [id number] EXAMS: CPT CODE: [id number] [facility] [address] <Continued> Orig Print D/T: S: 03/26/2019 (3602) [facility] NAME: GERSON VALLEJO Ham [facility] PHYS: Daniel Whitehead : 1950 AGE: 69 SEX: F [place] [address] LOC: Y.RAD PHONE #: [phone] EXAM DATE: 03/26/2019 STATUS: REG CLI FAX #: [phone] RAD #: D/C DT PAGE 2 Signed Report - MRI LW JNT W/O CONT LT 2019-02-07 08:26:00 Patient Name: GERSON VALLEJO Unit No: [id number] EXAMS: CPT CODE: [id number] [place] JNT W/[place] [address] MRI OF THE LEFT KNEE DIAGNOSIS: 1. [...] Technologist: Star Galvan(R) Transcribed D/ (825) Tatum [facility] NAME: GERSON VALLEJO [address] [place] [address] PHYS: Naila Syed MD : 1950 AGE: 69 SEX: F [place] [address] LOC: Y.MRI PHONE #: [phone] EXAM DATE: 02/06/2019 STATUS: DEP CLI FAX #: [phone] RAD #: D/C DT PAGE 1 Signed Report Patient Name: GERSON VALLEJO Unit No: [id number] EXAMS: CPT CODE: [id number] MRI LW JNT W/[place] [address] <Continued> Orig Print D/T: S: 02/07/2019 (829) [facility] NAME: GERSON VALLEJO [address] [place] [address] PHYS: Naila Syed MD : 1950 AGE: 69 SEX: F [place] [address] LOC: Y.MRI PHONE #: [phone] EXAM DATE: 02/06/2019 STATUS: DEP CLI FAX #: [phone] RAD #: D/C DT PAGE 2 Signed Report
--- OUTSIDE RECORDS SUMMARY | 2019-05-13 12:32 | XMS REPORT ---
[...] losartan NDC 0 Active not defined Zantac [facility] [address] Active not defined -01 Results No Known Results Summary Purpose EditoriallyinicalBustle Submission
--- OUTSIDE RECORDS SUMMARY | 2019-05-13 12:32 | XMS REPORT ---
[...] Status Dosage System Date Date Vitamin C [facility] [address] Active not defined Vitamin D-3 [facility] [address] Active not defined Triamcinolone [facility] 90448930958 0.1 % Dec 20, Active 1 application Acetonide Externally 2019 to affected Twice a day area Metoprolol [facility] 00317384749 25 mg Orally Dec 20, Active 1 capsule Succinate Once a day 2019 PreserVision [facility] [address]-75 Active not defined AREDS Gabapentin [facility] 80731995990 100 MG Orally December Active 1 capsule Three times a , 2019 Zantac [facility] [address]-75 Active not defined Amlodipine [facility] 28489536390 5 MG Orally Nov 22, Active 1 tablet Besylate Once a day 2017 Results No Known Results Summary Purpose eClinicalWorks Submission
--- OUTSIDE RECORDS SUMMARY | 2019-05-13 12:33 | XMS REPORT ---
[...] End Status Dosage System Date Date Lisinopril [facility] 13395394010 10 MG Orally Active 1 tablet Once a day PreserVision [facility] [address]-45 Active not defined AREDS Vitamin C [facility] [address] Active not defined Amlodipine [facility] 31723119120 5 MG Orally Nov 22, Active 1 tablet Besylate Once a day 2017 Gabapentin [facility] 00726454399 100 MG Orally December Active 1 capsule Three times a 13, day 2018 Zantac [facility] [address]-94 Active not defined Metoprolol [facility] 02901116107 25 mg Orally Dec 20, Active 1 capsule Succinate Once a day 2018 Vitamin D-3 [facility] [address] Active not defined Triamcinolone [facility] 12049072846 0.1 % Dec 20, Active 1 application Acetonide Externally 2018 to affected Twice a day area Results No Known Results Summary Purpose eClinicalWorks Submission
[2019-05-13 13:06] VITALS: BMI 25.0
[2019-05-13] MEDS: NACHLORIDE 0.45% 1,000 ML IV SCH (13:56)
[2019-05-13] MEDS: METRONIDAZOLE 500mg IVPB 500 MG/100 ML BAG IV SCH ×2 (13:57→20:50)
[2019-05-13] MEDS: CIPROFLOXACIN 400mg IV 400 MG/200 ML BAG IV SCH ×2 (13:59→20:49)
[2019-05-13] MEDS ORDERED: ONDANSETRON 4 MG/2 ML VIAL IV PRN (14:00)
[2019-05-13] MEDS ORDERED: ACETAMINOPHEN 325 MG TABLET PO PRN (14:00)
[2019-05-13] MEDS ORDERED: LOPERAMIDE HCL 2 MG CAPSULE PO PRN (14:00)
[2019-05-13] MEDS ORDERED: POLYETHYL GLY 3350 17 GM/DOSE PO PRN (14:00)
[2019-05-13] MEDS ORDERED: ONDANSETRON 4 MG (ODT) TAB PO PRN (14:00)
[2019-05-13] MEDS ORDERED: ALBUTEROL 2.5 MG/3 ML NEB SOL IH PRN (14:50)
[2019-05-13 15:26] LABS: Absolute Lymphocytes (CBC) 2.2 K/uL (0.7-4.9); Basophils % 0.8 % (0-1.3); Eosinophils % 0.7 % (0-4.4); Hematocrit 42.9 % (36.0-45.0); Lymphocytes % 33.7 % (15.3-44.8); MPV 7.4 fL (7.6-11.3); Monocytes % 7.9 % (3.3-12.3); RBC Red Blood Cell Count 4.52 M/uL (3.86-4.86)
[2019-05-13 15:28] LABS: Protime INR 1.04
[2019-05-13 16:02] LABS: Albumin 4.5 g/dL (3.4-5.0); Bilirubin Direct 0.1 mg/dL (0-0.2); Bilirubin Total 0.3 mg/dL (0.2-1.0); Magnesium 2.5 mg/dL (1.8-2.4); Phosphorus 3.2 mg/dL (2.5-4.9); Potassium 4.2 mmol/L (3.5-5.1); Protein, Total 8.3 g/dL (6.4-8.2)
--- NOTE | 2019-05-13 17:44 | RAD REPORT ---
EXAM DESCRIPTION: RAD - Chest Pa And Lat (2 Views) - 05/13/2019 5:31 pm CLINICAL HISTORY: abdominal pain Chest pain. COMPARISON: Chest Single View dated 03/17/2019; Chest Single View dated 03/19/2017 FINDINGS: The lungs are clear. The heart is mildly prominent in size. No displaced fractures. IMPRESSION: Mild cardiomegaly. Cholecystectomy clips.
--- NOTE | 2019-05-13 18:03 | RAD REPORT ---
EXAM DESCRIPTION: CTAbdomen Pelvis W Contrast - 05/13/2019 5:20 pm CLINICAL HISTORY: Abdominal pain. abdominal pain/weight loss COMPARISON: <Comparisons> TECHNIQUE: Biphasic CT imaging of the abdomen and pelvis was performed with 100 ml non-ionic IV cont rast. All CT scans are performed using dose optimization technique as appropriate and may include automated exposure control or mA/KV adjustment according to patient size. FINDINGS: The lung bases are clear.Cholecystectomy clips. The liver, spleen, pancreas, adrenal glands and kidneys are within normal limits. No bowel obstruction, free air, free fluid or abscess. The appendix is normal. No evidence of signi ficant lymphadenopathy. No suspicious bony findings. Multilevel disc bulging is seen lower lumbar spine. IMPRESSION: No acute intra-abdominal or pelvic finding.
[2019-05-13] MEDS ORDERED: DIPHENHYDRAMINE 25 MG TAB/CAP PO PRN (18:30)
[2019-05-13 18:44] LABS: Urine Appearance CLEAR; Urine Bilirubin NEGATIVE (NEG); Urine Blood NEGATIVE (NEG); Urine Color YELLOW; Urine Glucose NEGATIVE (NEG); Urine Protein NEGATIVE (NEG); Urine Urobilinogen 0.2 mg/dL (0.2-1.0)
[2019-05-13 18:48] LABS: Urine Microscopic Reflex NO UMIC
[2019-05-13] MEDS: LEVALBUTEROL 1.25 MG/3 ML NEB IH SCH (20:20)
[2019-05-13] MEDS: IPRATROPIUM BROM 0.5MG/2.5ML IH SCH (20:20)
[2019-05-13] MEDS ORDERED: MIRTAZAPINE 15 MG TAB PO SCH (21:00)
[2019-05-14] MEDS: LEVALBUTEROL 1.25 MG/3 ML NEB IH SCH ×2 (01:45→08:00)
[2019-05-14] MEDS: IPRATROPIUM BROM 0.5MG/2.5ML IH SCH ×2 (01:45→08:00)
[2019-05-14] MEDS: NACHLORIDE 0.45% 1,000 ML IV SCH ×2 (02:18→05:49)
[2019-05-14 06:14] LABS: Absolute Lymphocytes (CBC) 2.1 K/uL (0.7-4.9); Basophils % 0.5 % (0-1.3); Eosinophils % 1.5 % (0-4.4); Hematocrit 38.6 % (36.0-45.0); Lymphocytes % 31.4 % (15.3-44.8); MPV 7.4 fL (7.6-11.3); Monocytes % 10.4 % (3.3-12.3); RBC Red Blood Cell Count 4.13 M/uL (3.86-4.86)
[2019-05-14] MEDS ORDERED: ENOXAPARIN 40 MG/0.4 ML SQ SCH (09:00)
[2019-05-14] MEDS: CIPROFLOXACIN 400mg IV 400 MG/200 ML BAG IV SCH (09:03)
[2019-05-14] MEDS: METRONIDAZOLE 500mg IVPB 500 MG/100 ML BAG IV SCH (09:04)
[2019-05-14 10:48] VITALS: O2SAT 97
[2019-05-14 14:24] VITALS: BP 127/65; TEMP 98.1
--- NOTE | 2019-05-14 15:07 | EKG ---
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
--- NOTE | 2019-05-14 21:07 | P.DS ---
Admission Date: 05/13/19 Discharge Date: 05/14/19 Disposition: ROUTINE DISCHARGE Discharge Condition: FAIR Hospital Course: MRS. VALLEJO IS DOING A LOT BETTER. SHE DOES NOT HAVE ANY ABDOMEN PAIN. SHE IS ANXIOUS AND DID WELL WITH REMERON I GAVE FOR INSOMNIA. SHE WILL TAKE THAT AT HOME. CT SCAN IS NEGATIVE. Vital Signs/Physical Exam: Temp Pulse Resp BP Pulse Ox 98.1 F 77 18 127/65 95 05/14/19 12:00 05/14/19 12:00 05/14/19 12:00 05/14/19 12:00 05/14/19 12:00 General: Alert, In no apparent distress HEENT: Atraumatic, PERRLA, EOMI Neck: Supple, JVD not distended Respiratory: Clear to auscultation bilaterally, Normal air movement Cardiovascular: Regular rate/rhythm, Normal S1 S2 Gastrointestinal: Normal bowel sounds, No tenderness Musculoskeletal: No tenderness Integumentary: No rashes Neurological: Normal speech, Normal tone, Normal affect Lymphatics: No axilla or inguinal lymphadenopathy Laboratory Data at Discharge: WBC 6.8 K/uL (4.3-10.9) 05/14/19 05:34 Hgb 13.1 g/dL (12.0-15.0) 05/14/19 05:34 Hct 38.6 % (36.0-45.0) 05/14/19 05:34 Plt Count 385 K/uL (152-406) 05/14/19 05:34 PT 12.2 SECONDS (9.5-12.5) 05/13/19 15:08 INR 1.04 05/13/19 15:08 APTT 33.8 SECONDS (24.3-36.9) 05/13/19 15:08 Sodium 138 mmol/L (136-145) 05/13/19 15:08 Potassium 4.2 mmol/L (3.5-5.1) 05/13/19 15:08 BUN 9 mg/dL (7-18) 05/13/19 15:08 Creatinine 0.76 mg/dL (0.55-1.3) 05/13/19 15:08 Glucose 100 mg/dL (74-106) 05/13/19 15:08 Phosphorus 3.2 mg/dL (2.5-4.9) 05/13/19 15:08 Magnesium 2.5 mg/dL (1.8-2.4) H 05/13/19 15:08 Total Bilirubin 0.3 mg/dL (0.2-1.0) 05/13/19 15:08 AST 25 U/L (15-37) 05/13/19 15:08 ALT 32 U/L (12-78) 05/13/19 15:08 Alkaline Phosphatase 102 U/L (45-117) 05/13/19 15:08 Amylase 58 U/L (25-115) 05/13/19 15:08 Lipase 95 U/L (73-393) 05/13/19 15:08 Home Medications: Omeprazole 20 mg PO DAILY AT SUPPER 03/19/17 Lisinopril 10 mg PO DAILY 05/13/19 Mirtazapine [Remeron*] 7.5 mg PO BEDTIME #90 tab 05/14/19 New Medications: Mirtazapine [Remeron*] 7.5 mg PO BEDTIME #90 tab Diet: ADA
== END 2019-05-14 14:48 | disposition home or self-care (01) ==
LOC: 4TH 12:30
PROVIDERS: ADMIT Internal Medicine; ATTEND Internal Medicine
DX: R10.13 Epigastric pain (principal); R10.32 Left lower quadrant pain; R10.31 Right lower quadrant pain; G47.00 Insomnia, unspecified; I51.7 Cardiomegaly; R94.31 Abnormal electrocardiogram [ECG] [EKG]; K21.9 Gastro-esophageal reflux disease without esophagitis; I10 Essential (primary) hypertension; Z79.899 Other long term (current) drug therapy; Z90.49 Acquired absence of other specified parts of digestive tract
CPT/HCPCS: 93005; 87040; 87088; 85025 ×2; 80048; 36415; 82150; 83735; 84100; 85610; 80076; 85730; 81003; 82607; 83690; 82306; 74177; 71046; 94640; Q9967; G0379; J0744 ×3; G0378; 87086; J1650

== ENCOUNTER 2025-06-20 10:55 | Inpatient (IN) | payer OTHER, BC ==
[2025-06-20] MEDS ORDERED: ONDANSETRON 4 MG/2 ML VIAL ONE (11:26)
[2025-06-20] MEDS ORDERED: MECLIZINE HCL 12.5 MG TAB ONE (11:27)
[2025-06-20] MEDS ORDERED: NA CHLORIDE 0.9% 1,000 ML ONE (11:27)
[2025-06-20] MEDS ORDERED: FAMOTIDINE 20 MG/2 ML VIAL IV ONE (11:27)
[2025-06-20 11:33] LABS: Absolute Lymphocytes (CBC) 1.2 K/uL (0.7-4.9); Hematocrit 41.4 % (36.0-45.0); Hemoglobin 14.3 g/dL (12.0-15.0); MCH 32.0 pg (27.0-35.0); MCHC 34.5 g/dL (32.0-36.0); MCV 92.8 fL (80-100); MPV 6.9 fL (7.6-11.3); Nucleated RBC Absolute Count 0.0 (0-0); Nucleated Red Blood Cells % 0.2 % (0-0); RBC Red Blood Cell Count 4.46 M/uL (3.86-4.86); White Blood Count 4.10 thou/uL (4.3-10.9)
--- NOTE | 2025-06-20 11:50 | RAD REPORT ---
EXAMINATION: Head Brain Wo Cont CLINICAL INDICATION: Female, 75 years old.headache, dizziness, left posterior SAM TECHNIQUE: Axial CT images from the skull base to the vertex without intravenous contrast. Coronal an d sagittal reformatted images were created from the data set. One or more of the following dose reduction techniques were used: Automated exposure control, adjustment of the mA and/or kV according to patient size, and/or iterative reconstruction. Unless otherwise specified, incidental findings do not require dedicated imaging follow-up. [id number]. COMPARISON: No prior exams FINDINGS: INTRACRANIAL: No acute intracranial hemorrhage. No acute large vascular territory infarct. No hydroce phalus. No mass effect or midline shift. No significant white matter disease. VASCULATURE: No visualized abnormalities in the arteries or dural venous sinuses. SCALP/SKULL: No calvarial fracture identified. No acute soft tissue abnormality. SINUSES: The visualized paranasal sinuses are mostly clear. No significant mastoid fluid. IMPRESSION: No acute intracranial abnormality.
[2025-06-20 11:57] LABS: ALT/SGPT 26.0 U/L (13-56); AST/SGOT 17.0 U/L (15-37); Albumin 3.9 g/dL (3.4-5.0); Albumin/Globulin Ratio 1.1 (1.1-1.8); Alkaline Phosphatase 84.0 U/L (45-117); Anion Gap 11.5 mEq/L (5.0-15.0); BUN Blood Urea Nitrogen 11.0 mg/dL (7-18); Globulin 3.4 g/dL (2.3-3.5); Glucose Level 150.0 mg/dL (74-106); Lipase 28.0 U/L (13-75); Potassium 3.5 mEq/L (3.5-5.1); Troponin High Sensitivity 10.3 pg/mL (<58.9)
[2025-06-20 12:13] LABS: Urine Microscopic Reflex YN NO UMIC
--- NOTE | 2025-06-20 13:50 | EDPHYS ---
Physician Documentation [facility] Name: Zee Buenrostro Age: 75 yrs Sex: Female : 1950 Arrival Date: 06/20/2025 Time: 10:55 Bed 15 Private MD: ED Physician Moo Simmons HPI: 06/20 11:15 This 75 yrs old Female presents to ER via Unassigned with complaints of rn Dizziness, Vertigo, Nausea, Blood Pressure Problem. 11:15 Patient reports 2 days of dizziness, left posterior headache, associated with nausea rn and vomiting x 2. Patient has had vertigo in the past. She spoke with her PCP Dr. Denton who called in meclizine, patient feels meclizine has helped a little. Patient reports still feels nausea and indigestion. No abdominal pain. No blood in stool.. Historical: - Allergies: 11:15 Augmentin; iw 11:15 Codeine; iw 11:15 Medrol; iw 11:15 Morphine; iw - PMHx: 11:15 GERD; Hypertension; Issues with Pancrease; iw - PSHx: 11:15 2 stents; Coronary artery bypass graft; iw - Immunization history:: Adult Immunizations up to date. - Infectious Disease History:: Denies. - Family history:: not pertinent. - Social history:: Smoking status: Patient denies any tobacco usage or history of. - Hospitalizations: : No recent hospitalization is reported. ROS: 11:15 Constitutional: Negative for fever, chills, and weight loss, Neck: Negative for injury, rn pain, and swelling, Cardiovascular: Negative for chest pain, palpitations, and edema, Respiratory: Negative for shortness of breath, cough, wheezing, and pleuritic chest pain, Abdomen/GI: Negative for abdominal pain, positive for nausea and vomiting MS/Extremity: Negative for injury and deformity, Skin: Negative for injury, rash, and discoloration, Neuro: Positive for left posterior headache and dizziness. Negative for focal weakness or numbness Exam: 11:15 Constitutional: This is a well developed, well nourished patient who is awake, alert, rn and in no acute distress. Eyes: Pupils equal round and reactive to light, extra-ocular motions intact. ENT: Dry mucous membranes Cardiovascular: Regular rate and rhythm. No pulse deficits. Respiratory: No increased work of breathing, no retractions or nasal flaring. Abdomen/GI: Soft, non-tender, no masses, no peritoneal signs Neuro: Awake and alert, GCS 15, oriented to person, place, time, and situation. Cranial nerves II-XII grossly intact. Motor strength 5/5 in all extremities. Sensory grossly intact. 11:51 ECG was reviewed by the Attending Physician. rn Vital Signs: 11:11 BP 143 / 67; Pulse 65; Resp 16; Temp 98.1; Pulse Ox 99% on R/A; iw 11:47 BP 162 / 73; Pulse 67; Resp 16; Pulse Ox 100% on R/A; cm10 12:00 BP 174 / 66; Pulse 59; Resp 16; Pulse Ox 98% on R/A; cm10 12:35 BP 159 / 68; Pulse 66; Resp 16; Pulse Ox 100% on R/A; cm10 13:00 BP 151 / 65; Pulse 59; Resp 17; Pulse Ox 97% ; cm10 13:30 BP 167 / 87; Pulse 61; Resp 16; Pulse Ox 98% on R/A; cm10 14:00 BP 140 / 90; Pulse 62; Resp 14; Pulse Ox 97% on R/A; cm10 14:30 BP 154 / 64; Pulse 60; Resp 13; Pulse Ox 98% on R/A; cm10 MDM: 10:59 Medical Screening Exam initiated rn 11:26 Test considered but Not performed: MRI: not available over weekend. rn 11:52 ED course: ECG shows nonspecific ST elevation in lead III, is incomplete bundle branch rn block with J-point elevation. Had staffed for old ECG on May 27 of this year and is identical including T wave inversions in 1 and aVL. Patient reevaluated and still denies any chest pain or dyspnea. I do not think that this is acute ST elevation IN.. 13:12 ED course: Troponin negative x 2. Still denies any chest pain.. rn 13:38 Differential diagnosis: cardiac arrhythmia, CVA, hypovolemia, idiopathic dizziness, rn TIA, vertigo. Data reviewed: vital signs, nurses notes, lab test result(s), EKG, radiologic studies, CT scan, and as a result, I will admit patient. 13:44 Management of patient was discussed with the following: Hospitalist: Discussed case rn with hospitalist service as well as PCP Dr. Denton. Dr. Denton states out of town and hospitalist service is admitting for him.. Independent interpretation of the following test(s) in the Emergency Department EKG: See my EKG interpretation above CT Scan: My interpretation is CT head images negative for acute hemorrhage per my interpretation. brusher hand: rate is 62 beats/min, Rhythm is normal sinus rhythm, regular, with no ectopy, Interpretation: normal rate, normal rhythm. Counseling: I had a detailed discussion with the patient and/or guardian regarding the historical points, exam findings, and any diagnostic results supporting the discharge/admit diagnosis, the presence of at least one elevated blood pressure reading (>120/80) during this emergency department visit, lab results, radiology results, the need for further work-up and treatment in the hospital. Response to treatment: the patient's symptoms have mildly improved after treatment, and as a result, I will admit patient. 06/20 11:15 Order name: CBC with Diff; Complete Time: 11:56 rn 06/20 11:15 Order name: CMP; Complete Time: 12:12 rn 06/20 11:15 Order name: Lipase; Complete Time: 12:12 rn 06/20 11:15 Order name: Troponin High Sensitivity; Complete Time: 12:12 rn 06/20 11:25 Order name: UA Rfx Gonzalo Cult if indicated; Complete Time: 12:15 rn 06/20 12:17 Order name: Troponin High Sensitivity; Complete Time: 13:12 rn 06/20 14:41 Order name: Basic Metabolic Panel EDMS 06/20 14:41 Order name: Basic Metabolic Panel EDMS 06/20 14:41 Order name: Basic Metabolic Panel EDMS 06/20 14:41 Order name: Basic Metabolic Panel EDMS 06/20 14:41 Order name: Basic Metabolic Panel EDMS 06/20 14:41 Order name: CBC with Automated Diff EDMS 06/20 14:41 Order name: CBC with Automated Diff EDMS 06/20 14:41 Order name: CBC with Automated Diff EDMS 06/20 14:41 Order name: CBC with Automated Diff EDMS 06/20 14:41 Order name: CBC with Automated Diff EDMS 06/20 14:41 Order name: Hemoglobin A1c EDMS 06/20 14:41 Order name: Hemoglobin A1c EDMS 06/20 14:41 Order name: Lipid Profile EDMS 06/20 14:41 Order name: Lipid Profile EDMS 06/20 14:41 Order name: Magnesium EDMS 06/20 14:41 Order name: Magnesium EDMS 06/20 14:41 Order name: Magnesium EDMS 06/20 14:41 Order name: Magnesium EDMS 06/20 14:41 Order name: Magnesium EDMS 06/20 14:41 Order name: Phosphorus EDMS 06/20 14:41 Order name: Phosphorus EDMS 06/20 14:41 Order name: Phosphorus EDMS 06/20 14:41 Order name: Phosphorus EDMS 06/20 14:41 Order name: Phosphorus EDMS 06/20 14:41 Order name: T4 Free EDMS 06/20 14:41 Order name: T4 Free EDMS 06/20 14:41 Order name: Thyroid Stimulating Hormone EDMS 06/20 14:41 Order name: Thyroid Stimulating Hormone EDMS 06/20 14:41 Order name: Troponin High Sensitivity EDMS 06/20 14:41 Order name: Troponin High Sensitivity EDMS 06/20 14:41 Order name: Troponin High Sensitivity EDMS 06/20 14:42 Order name: UA Rfx Gonzalo Cult if indicated EDMS 06/20 11:15 Order name: CT Head Brain wo Cont; Complete Time: 11:56 rn 06/20 14:41 Order name: Echo with Doppler EDMS 06/20 14:41 Order name: Brain Wo Cont EDMS 06/20 14:41 Order name: CONS Physician Consult EDMS 06/20 14:41 Order name: Physical Therapy Consult EDMS 06/20 11:15 Order name: IV Saline Lock; Complete Time: 11:17 rn 06/20 11:15 Order name: Labs collected and sent; Complete Time: 11:17 rn 06/20 11:15 Order name: EKG - Nurse/Tech; Complete Time: 11:55 rn 06/20 11:26 Order name: Cardiac monitoring; Complete Time: 11:54 rn EC:51 Rate is 68 beats/min. Rhythm is regular. QRS [place] is Normal. MA interval is normal. QRS rn interval is normal. QT interval is normal. No Q waves. T waves are Inverted in leads I, aVL. No ST changes noted. Clinical impression: NSR w/ Non-specific ST/T Changes and No change from prior ECG. Interpreted by me. Reviewed by me. Administered Medications: 12:02 Drug: Ondansetron IVP 4 mg IVP once; over 2 minutes Route: IVP; Site: left antecubital; cm10 13:27 Follow up: Response: No adverse reaction cm10 12:02 Drug: NS 0.9% IV 1000 ml IV at 1 bolus Per protocol; to be given as a bolus over 60 cm10 minutes Route: IV; Rate: 1 bolus; Site: left antecubital; 13:27 Follow up: Response: No adverse reaction; IV Status: Completed infusion; IV Intake: cm10 1000ml 12:02 Drug: Meclizine PO 50 mg PO once Route: PO; cm10 13:26 Follow up: Response: No adverse reaction cm10 12:02 Drug: Famotidine IVP 20 mg IVP once; dilute with 10 mL 0.9% NaCl; give over 2 minutes cm10 Route: IVP; Site: left antecubital; 13:26 Follow up: Response: No adverse reaction cm10 Disposition Summary: 06/20/25 13:49 Hospitalization Ordered Notes: Hospitalization Status: Inpatient Admission rn Provider: Rowena Walden rn [facility] Condition: Stable rn Problem: new rn Symptoms: have improved rn Bed/Room Type: Standard rn Room Assignment: 205(06/20/25 14:58) dw Diagnosis - Vertigo rn - Dizziness and giddiness rn - Essential (primary) hypertension rn Forms: - Medication Reconciliation Form rn - SBAR form rn - Leadership Thank You Letter rn Signatures: Dispatcher [employer] Sherry Arana RN Marlen Garcia RN Moo Purvis MD MD rn Botello, Elizabeth eb Martinez, Clarissa, RN RN cm10 Corrections: (The following items were deleted from the chart) 14:48 13:49 rn eb 14:58 14:48 221 eb dw
--- NOTE | 2025-06-20 13:50 | ER ---
Nurse's Notes [facility] Name: Zee Buenrostro Age: 75 yrs Sex: Female : 1950 Arrival Date: 06/20/2025 Time: 10:55 Bed 15 Private MD: Diagnosis: Vertigo;Dizziness and giddiness;Essential (primary) hypertension Presentation: 06/20 11:11 Chief complaint: Patient states: vomiting, dizzy, felt burning in her stomach , started iw yesterday morning, denies fever, denies diarrhea. Coronavirus screen: At this time, the client does not indicate any symptoms associated with coronavirus-19. Ebola Screen: No symptoms or risks identified at this time. Initial Sepsis Screen: Does the patient meet any 2 criteria? No. Patient's initial sepsis screen is negative. Does the patient have a suspected source of infection? No. Patient's initial sepsis screen is negative. Risk Assessment: Do you want to hurt yourself or someone else? Patient reports no desire to harm self or others. Onset of symptoms was June 19, 2025. 11:11 Method Of Arrival: Ambulatory iw 11:11 Acuity: ELHAM 3 iw Historical: - Allergies: 11:15 Augmentin; iw 11:15 Codeine; iw 11:15 Medrol; iw 11:15 Morphine; iw - PMHx: 11:15 GERD; Hypertension; Issues with Pancrease; iw - PSHx: 11:15 2 stents; Coronary artery bypass graft; iw - Immunization history:: Adult Immunizations up to date. - Infectious Disease History:: Denies. - Family history:: not pertinent. - Social history:: Smoking status: Patient denies any tobacco usage or history of. - Hospitalizations: : No recent hospitalization is reported. Screenin:04 [facility] ED Fall Risk Assessment (Adult) History of falling in the last 3 months, cm10 including since admission No falls in past 3 months (0 pts) Confusion or Disorientation No (0 pts) Intoxicated or Sedated No (0 pts) Impaired Gait No (0 pts) Mobility Assist Device Used No (0 pt) Altered Elimination No (0 pt) Score/Fall Risk Level 0 - 2 = Low Risk Oriented to surroundings, Maintained a safe environment, Hourly rounding (assess needs \T\ fall precautionary measures) done. Abuse screen: Denies threats or abuse. Denies injuries from another. Nutritional screening: No deficits noted. Tuberculosis screening: No symptoms or risk factors identified. Assessment: 11:15 General: Appears in no apparent distress. comfortable, Behavior is calm, cooperative, cm10 appropriate for age. Pain: Complains of pain in epigastric area Pain currently is 8 out of 10 on a pain scale. Quality of pain is described as burning. Neuro: No deficits noted. Level of Consciousness is awake, alert, obeys commands, Oriented to person, place, time, situation, Appropriate for age. Neuro: Fernandez Agitation-Sedation Scale (RASS): Machine Sign Writer are equal bilaterally Moves all extremities. Gait is steady, Speech is normal, Reports dizziness. Cardiovascular: No deficits noted. Patient's skin is warm and dry. Rhythm is sinus rhythm. Respiratory: Airway is patent Respiratory effort is even, unlabored, Respiratory pattern is regular, symmetrical. GI: Abdomen is flat, Bowel sounds present X 4 quads. Abd is soft and non tender X 4 quads. Reports epigastric pain. Musculoskeletal: Circulation, motion, and sensation intact. Range of motion: intact in all extremities. 12:44 Reassessment: Patient appears in no apparent distress at this time. Patient and/or cm10 family updated on plan of care and expected duration. Pain level reassessed. Patient is alert, oriented x 3, equal unlabored respirations, skin warm/dry/pink. Patient states feeling better. Patient states symptoms have improved. 13:26 Reassessment: Patient appears in no apparent distress at this time. Patient and/or cm10 family updated on plan of care and expected duration. Pain level reassessed. Patient is alert, oriented x 3, equal unlabored respirations, skin warm/dry/pink. 14:36 Reassessment: Patient appears in no apparent distress at this time. Patient and/or cm10 family updated on plan of care and expected duration. Pain level reassessed. Patient is alert, oriented x 3, equal unlabored respirations, skin warm/dry/pink. Vital Signs: 11:11 BP 143 / 67; Pulse 65; Resp 16; Temp 98.1; Pulse Ox 99% on R/A; iw 11:47 BP 162 / 73; Pulse 67; Resp 16; Pulse Ox 100% on R/A; cm10 12:00 BP 174 / 66; Pulse 59; Resp 16; Pulse Ox 98% on R/A; cm10 12:35 BP 159 / 68; Pulse 66; Resp 16; Pulse Ox 100% on R/A; cm10 13:00 BP 151 / 65; Pulse 59; Resp 17; Pulse Ox 97% ; cm10 13:30 BP 167 / 87; Pulse 61; Resp 16; Pulse Ox 98% on R/A; cm10 14:00 BP 140 / 90; Pulse 62; Resp 14; Pulse Ox 97% on R/A; cm10 14:30 BP 154 / 64; Pulse 60; Resp 13; Pulse Ox 98% on R/A; cm10 ED Course: 10:59 Patient arrived in ED. ts1 10:59 Moo Simmons MD is Attending Physician. rn 11:07 Maryan Curiel RN is Primary Nurse. cm10 11:15 Triage completed. iw 11:16 Arm band placed on. iw 11:16 Initial lab(s) drawn, by me, sent to lab. Inserted saline lock: 20 gauge in left cm10 antecubital area, using aseptic technique. Blood collected. Flushed with 10 mL NS. 11:30 CT Head Brain wo Cont In Process Unspecified. EDMS 11:45 Client placed on continuous cardiac and pulse oximetry monitoring. NIBP monitoring cm10 applied. monitor worker on. 11:45 Patient has correct armband on for positive identification. Bed in low position. Call cm10 light in reach. Side rails up X2. 11:55 EKG done, by ED staff, reviewed by Moo Simmons MD. rk3 12:24 Repeat lab(s) drawn. by me, sent to lab. cm10 12:43 Troponin High Sensitivity Sent. cm10 13:47 Rowena Walden MD is Hospitalizing Provider. rn 15:02 No provider procedures requiring assistance completed. Patient admitted, IV remains in cm10 place. Administered Medications: 12:02 Drug: Ondansetron IVP 4 mg IVP once; over 2 minutes Route: IVP; Site: left antecubital; cm10 13:27 Follow up: Response: No adverse reaction cm10 12:02 Drug: NS 0.9% IV 1000 ml IV at 1 bolus Per protocol; to be given as a bolus over 60 cm10 minutes Route: IV; Rate: 1 bolus; Site: left antecubital; 13:27 Follow up: Response: No adverse reaction; IV Status: Completed infusion; IV Intake: cm10 1000ml 12:02 Drug: Meclizine PO 50 mg PO once Route: PO; cm10 13:26 Follow up: Response: No adverse reaction cm10 12:02 Drug: Famotidine IVP 20 mg IVP once; dilute with 10 mL 0.9% NaCl; give over 2 minutes cm10 Route: IVP; Site: left antecubital; 13:26 Follow up: Response: No adverse reaction cm10 Medication: 12:04 VIS not applicable for this client. cm10 Intake: 13:27 IV: 1000ml; Total: 1000ml. cm10 Outcome: 13:49 Decision to Hospitalize by Provider. rn 15:02 Admitted to Med/surg accompanied by tech, via wheelchair, room 205, 10 15:02 Condition: good 15:02 Instructed on the need for admit, 16:05 Patient left the ED. cm10 Signatures: Dispatcher [employer] Marlen Todd RN RN Moo Simmons MD MD rn Simpson, Tanya, PAS PAS ts1 Maryan Curiel RN RN cm10 Maureen Stephens rk3
[2025-06-20] MEDS ORDERED: ACETAMINOPHEN 325 MG TABLET PO PRN (14:29)
--- NOTE | 2025-06-20 14:49 | P.HP ---
Certification for Inpatient Patient admitted to: Inpatient With expected LOS: >2 Midnights Patient will require the following post-hospital care: None Practitioner: I am a practitioner with admitting privileges, knowledge of patient current condition, hospital course, and medical plan of care. Services: Services provided to patient in accordance with Admission requirements found in Title 42 Section 412.3 of the Code of Federal Regulations <Catrachita Mac - Last Filed: 06/20/25 18:04> Patient History Date of Service: 06/20/25 Reason for admission: Dizziness, CVA r/o History of Present Illness: Zee Buenrostro is a 75 year old female with PMhx CAD s/p CABG with 2 stents, HTN who presents to the ED with worsening dizziness, headache and hypertension. She reports coming to the ED in April with the same symptoms and has not felt relief. She reports speaking to her PCP, Dr. Denton who prescribed meclizine but has not eliminated her symptoms. Laboratory evaluation significant for WBC 4.1, H&H 14/41, sodium 134, serum glucose 150, UA negative for infectious process Head CT reports "No acute intracranial abnormality. No acute fracture or traumatic malalignment of the cervical spine." EKG with ST abnormalities. Zee reports her CABG was performed with difficulties and her EKG will always appear abnormal. Zee will be admitted to hospitalist service for further evaluation and treatment of worsening dizziness, headach and hypertension. - Past Medical/Surgical History Diabetic: No -: Gerd -: Hypertension -: Insomnia -: Hemorrhoids -: Meniscus Tear left knee -: Pancreatitis -: Cholelithiasis -: Cataract-jasvir -: Appendicitis -: Meniscus Tear Repair Left knee -: Jasvir Cataract Surgery -: Hysterectomy -: Cholecystectomy -: Appendectomy -: Pancreatic Stent -: Hemorrhoid Banding - Family History Father -: Heart disease Mother -: GI disease - Social History Smoking Status: Never smoker Alcohol use: No CD- Drugs: No Caffeine use: Yes <Catrachita Mac - Last Filed: 06/20/25 18:04> Date of Service: 06/21/25 <Bozena Roberts - Last Filed: 06/21/25 06:38> Allergies amoxicillin [From Augmentin] Allergy (Verified 03/19/17 08:47) Hives/Rash clavulanic acid [From Augmentin] Allergy (Verified 03/19/17 08:47) Hives/Rash codeine Allergy (Verified 05/13/19 13:03) high blood pressure losartan Allergy (Verified 05/13/19 13:03) Rash diphenhydramine [From Benadryl] Adverse Reaction (Verified 05/13/19 13:03) shaking methylprednisolone [From Medrol] Adverse Reaction (Verified 03/19/17 08:47) depression metoclopramide [From Reglan] Adverse Reaction (Verified 05/13/19 13:03) shaking morphine Adverse Reaction (Verified 03/19/17 08:47) headache Home Medications: Carvedilol [Coreg] 12.5 mg PO BID 06/20/25 Pantoprazole [Protonix Tab*] 40 mg PO PRN PRN 06/20/25 Review of Systems Other: per HPI <Catrachita Mac - Last Filed: 06/20/25 18:04> Physical Examination - Physical Exam General: Alert, In no apparent distress, Oriented x3 HEENT: Atraumatic, Normocephalic Respiratory: Clear to auscultation bilaterally, Normal air movement Cardiovascular: Normal pulses, Regular rate/rhythm Gastrointestinal: Normal bowel sounds, Soft and benign Musculoskeletal: No clubbing Integumentary: No rashes Neurological: Normal speech, Normal tone - Studies Laboratory Data (last 24 hrs) 06/20/25 06/20/25 11:21 11:21 WBC 4.10 L Hgb 14.3 Hct 41.4 Plt Count 391 Sodium 134 L Potassium 3.5 BUN 11 Creatinine 0.87 Glucose 150 H Total Bilirubin 0.5 AST 17 ALT 26 Alkaline Phosphatase 84 Lipase 28 <Catrachita Mac - Last Filed: 06/20/25 18:04> - Studies Laboratory Data (last 24 hrs) 06/20/25 06/20/25 11:21 11:21 WBC 4.10 L Hgb 14.3 Hct 41.4 Plt Count 391 Sodium 134 L Potassium 3.5 BUN 11 Creatinine 0.87 Glucose 150 H Total Bilirubin 0.5 AST 17 ALT 26 Alkaline Phosphatase 84 Lipase 28 <Bozena Roberts - Last Filed: 06/21/25 06:38> Assessment and Plan - Plan Assessment and Plan CVA r/o Headache Dizziness and weakness -MRI on Sunday -ECHO -Consult Dr. Hdz -Allow permissive hypertension - NIHSS 0 - Echocardiogram ordered - Lipid panel, TSH, A1c ordered - Physical therapy consulted Constipation -Patient reports constipation -MiraLAX and Dulcolax as needed - KUB pending Abnormal EKG CAD s/p CABG with 2 stents Hypertension -EKG Suggesting acute CT d/t CABG complications -Trend troponin - Denies chest pain - Consult cardiology -aspirin, lipitor -continue home medications -Continuous telemetry Pancreatitis Cholelithiasis Insomnia GERD Hypertension Hemorrhoid -Supportive care -continue home medications as appropriate DVT ppx lovenox Full code LOS 2 days Discharge Plan: Home Plan to discharge in: 72 Hours - Advance Directives Does patient have a Living Will: Yes Does patient have a Durable POA for Healthcare: Yes Time Spent Managing Pts Care (In Minutes): 60 <Catrachita Mac - Last Filed: 06/20/25 18:04> Physician Review: Patient Assessed, Agree with Above Assessment and Plan <Bozena Roberts - Last Filed: 06/21/25 06:38>
[2025-06-20 16:24] VITALS: BMI 22.3
[2025-06-20] MEDS ORDERED: POLYETHYL GLY 3350 17 GM/DOSE PO PRN (16:39)
[2025-06-20] MEDS: ATORVASTATIN 40 MG TAB PO SCH (20:49)
[2025-06-20] MEDS: BISACODYL E.C. 5 MG TAB PO PRN (20:49)
--- NOTE | 2025-06-20 21:20 | RAD REPORT ---
EXAM: AP view(s) of the abdomen Abdomen 1 View (KUB) HISTORY: constipated COMPARISON: None FINDINGS: Nonobstructive bowel gas pattern.. Mild to moderate colonic stool burden. Most of the formed stool i s present at the ascending colon and rectum. Surgical clips in right upper quadrant.. No acute osseous abnormality. Sternotomy Other: n/a IMPRESSION: Nonobstructive bowel gas pattern. [id number] formed colonic stool burden.
[2025-06-20 22:18] VITALS: O2SAT 96
[2025-06-21 04:58] LABS: Absolute Lymphocytes (CBC) 1.7 K/uL (0.7-4.9); Hematocrit 37.5 % (36.0-45.0); Hemoglobin 13.2 g/dL (12.0-15.0); MCH 32.7 pg (27.0-35.0); MCHC 35.3 g/dL (32.0-36.0); MCV 92.6 fL (80-100); MPV 6.7 fL (7.6-11.3); Nucleated RBC Absolute Count 0.0 (0-0); Nucleated Red Blood Cells % 0.0 % (0-0); RBC Red Blood Cell Count 4.05 M/uL (3.86-4.86); White Blood Count 6.40 thou/uL (4.3-10.9)
[2025-06-21 05:30] LABS: Anion Gap 8.6 mEq/L (5.0-15.0); BUN Blood Urea Nitrogen 12.0 mg/dL (7-18); Glucose Level 91.0 mg/dL (74-106); HDL Cholesterol 62.0 mg/dL (40-60); LDL Cholesterol, Calculated 132.0 mg/dL (<130); LDL Cholesterol,Calc NonReport 132.0; Magnesium 2.0 mg/dL (1.6-2.4); Potassium 3.6 mEq/L (3.5-5.1); Thyroid Stimulating Hormone 1.71 uIU/mL (0.358-3.740)
[2025-06-21] MEDS: POTASSIUM CL SA 10 MEQ TAB PO ONE (07:49)
[2025-06-21] MEDS: ASPIRIN EC 81 MG TAB PO SCH (07:50)
[2025-06-21] MEDS: ENOXAPARIN 40 MG/0.4 ML SQ SCH (07:52)
[2025-06-21] MEDS: FOLIC ACID 1 MG TABLET PO SCH (07:52)
--- NOTE | 2025-06-21 12:23 | P.CNS ---
Date of Consult: 06/21/25 Chief Complaint: Dizziness, CVA r/o History of Present Illness: Patient with PMH of CAD s/p CABG, presented with dizziness and headache, denies chest pain, no palpitations, no breathing problems, no syncope. Allergies amoxicillin [From Augmentin] Allergy (Verified 03/19/17 08:47) Hives/Rash clavulanic acid [From Augmentin] Allergy (Verified 03/19/17 08:47) Hives/Rash codeine Allergy (Verified 05/13/19 13:03) high blood pressure losartan Allergy (Verified 05/13/19 13:03) Rash diphenhydramine [From Benadryl] Adverse Reaction (Verified 05/13/19 13:03) shaking methylprednisolone [From Medrol] Adverse Reaction (Verified 03/19/17 08:47) depression metoclopramide [From Reglan] Adverse Reaction (Verified 05/13/19 13:03) shaking morphine Adverse Reaction (Verified 03/19/17 08:47) headache Home Medications: Carvedilol [Coreg] 12.5 mg PO BID 06/20/25 Pantoprazole [Protonix Tab*] 40 mg PO PRN PRN 06/20/25 - Past Medical/Surgical History Diabetic: No -: Gerd -: Hypertension -: Insomnia -: Hemorrhoids -: Meniscus Tear left knee -: Pancreatitis -: Cholelithiasis -: Cataract-bert -: Appendicitis -: Meniscus Tear Repair Left knee -: Bert Cataract Surgery -: Hysterectomy -: Cholecystectomy -: Appendectomy -: Pancreatic Stent -: Hemorrhoid Banding - Family History Father Medical History: Heart disease Mother Medical History: GI disease - Social History Alcohol use: No CD- Drugs: No Caffeine use: Yes Place of Residence: Home Review of Systems 10-point ROS is otherwise unremarkable Physical Examination Temp Pulse Resp BP Pulse Ox 98.3 F 63 16 145/63 H 95 06/21/25 08:00 06/21/25 08:00 06/21/25 08:00 06/21/25 08:00 06/21/25 08:00 General: Alert, In no apparent distress HEENT: Atraumatic, PERRLA, Mucous membr. moist/pink, EOMI, Sclerae nonicteric Neck: Supple, 2+ carotid pulse no bruit, No LAD, Without JVD or thyroid ab normality Respiratory: Clear to auscultation bilaterally, Normal air movement Cardiovascular: Regular rate/rhythm, Normal S1 S2 Gastrointestinal: Normal bowel sounds, No tenderness Musculoskeletal: No tenderness Integumentary: No rashes Neurological: Normal gait, Normal speech, Normal tone, Normal affect Lymphatics: No axilla or inguinal lymphadenopathy - Problems (1) Abnormal EKG Current Visit: Yes Status: Acute Plan: patient EKG with inferior ST elevation, patient with history of CAD and CABG, she is chest pain free, with negative cardiac enzymes continue ASA continue to follow up with cardiology as outpatient. (2) Dizziness Current Visit: Yes Status: Acute Plan: Tele normal outpatient follow up with cardiology for event monitor and echo (3) HTN (hypertension) Current Visit: Yes Status: Acute Plan: continue coreg and monitor
--- NOTE | 2025-06-21 12:24 | P.DS ---
Admission Date: 06/20/25 Discharge Date: 06/21/25 Reason for Admission: Dizziness, CVA r/o Brief History of Present Illness: Zee Buenrostro is a 75 year old female with PMhx CAD s/p CABG with 2 stents, HTN who presents to the ED with worsening dizziness, headache and hypertension. She reports coming to the ED in April with the same symptoms and has not felt relief. She reports speaking to her PCP, Dr. Denton who prescribed meclizine but has not eliminated her symptoms. Laboratory evaluation significant for WBC 4.1, H&H 14/41, sodium 134, serum glucose 150, UA negative for infectious process Head CT reports "No acute intracranial abnormality. No acute fracture or trauma tic malalignment of the cervical spine." EKG with ST abnormalities. Zee reports her CABG was performed with difficulties and her EKG will always appear abnormal. Zee will be admitted to hospitalist service for further evaluation and treatment of worsening dizziness, headach and hypertension. Hospital Course: Problem list CVA r/o Headache Dizziness and weakness Constipation Abnormal EKG CAD s/p CABG with 2 stents Hypertension Pancreatitis Cholelithiasis Insomnia GERD Hypertension Hemorrhoid Patient was admitted to the hospital for dizziness/room spinning sensation. CT of her head was negative for acute findings. She was observed overnight in the hospital her troponins were negative x 3 with no significant arrhythmia on telemetry. This morning she feels totally better, no further room spinning sensation after receiving meclizine. She was ambulated around the nurses station in stable on her feet. She is counseled that she should follow-up with her primary care doctor, I will provide prescription for as needed meclizine and information on the Margret maneuver. NIH is 0, no residual neurological deficits. Please continue home medications as previously prescribed Follow-up with Dr. Denton in the clinic in the next 2 to 3 days <Jamie Buck - Last Filed: 06/21/25 12:23> Admission Date: 06/20/25 Discharge Date: 06/21/25 <Bozena Roberts - Last Filed: 06/21/25 15:26> Disposition: ROUTINE DISCHARGE Discharge Condition: GOOD Vital Signs/Physical Exam: Temp Pulse Resp BP Pulse Ox 98.3 F 63 16 145/63 H 95 06/21/25 08:00 06/21/25 08:00 06/21/25 08:00 06/21/25 08:00 06/21/25 08:00 General: Alert, In no apparent distress, Oriented x3 HEENT: Atraumatic, PERRLA, EOMI Neck: Supple, JVD not distended Respiratory: Clear to auscultation bilaterally, Normal air movement Cardiovascular: Regular rate/rhythm, Normal S1 S2 Gastrointestinal: Normal bowel sounds, No tenderness Musculoskeletal: No tenderness Integumentary: No rashes Neurological: Normal speech, Normal tone, Normal affect Laboratory Data at Discharge: WBC 6.40 thou/uL (4.3-10.9) 06/21/25 04:40 Hgb 13.2 g/dL (12.0-15.0) 06/21/25 04:40 Hct 37.5 % (36.0-45.0) 06/21/25 04:40 Plt Count 324 thou/uL (152-406) 06/21/25 04:40 Sodium 137 mEq/L (136-145) 06/21/25 04:40 Potassium 3.6 mEq/L (3.5-5.1) 06/21/25 04:40 BUN 12 mg/dL (7-18) 06/21/25 04:40 Creatinine 0.62 mg/dL (0.55-1.02) 06/21/25 04:40 Glucose 91 mg/dL (74-106) 06/21/25 04:40 Phosphorus 2.8 mg/dL (2.5-4.9) 06/21/25 04:40 Magnesium 2.0 mg/dL (1.6-2.4) 06/21/25 04:40 Total Bilirubin 0.5 mg/dL (0.2-1.0) 06/20/25 11:21 AST 17 U/L (15-37) 06/20/25 11:21 ALT 26 U/L (13-56) 06/20/25 11:21 Alkaline Phosphatase 84 U/L (45-117) 06/20/25 11:21 Triglycerides 92 mg/dL (<150) 06/21/25 04:40 Cholesterol 212 mg/dL (<200) H 06/21/25 04:40 HDL Cholesterol 62 mg/dL (40-60) H 06/21/25 04:40 Cholesterol/HDL Ratio 3.42 06/21/25 04:40 Lipase 28 U/L (13-75) 06/20/25 11:21 <Jamie Buck - Last Filed: 06/21/25 12:23> Vital Signs/Physical Exam: Temp Pulse Resp BP Pulse Ox 98.2 F 67 16 169/72 H 98 06/21/25 12:00 06/21/25 12:00 06/21/25 12:00 06/21/25 12:00 06/21/25 12:00 Laboratory Data at Discharge: WBC 6.40 thou/uL (4.3-10.9) 06/21/25 04:40 Hgb 13.2 g/dL (12.0-15.0) 06/21/25 04:40 Hct 37.5 % (36.0-45.0) 06/21/25 04:40 Plt Count 324 thou/uL (152-406) 06/21/25 04:40 Sodium 137 mEq/L (136-145) 06/21/25 04:40 Potassium 3.6 mEq/L (3.5-5.1) 06/21/25 04:40 BUN 12 mg/dL (7-18) 06/21/25 04:40 Creatinine 0.62 mg/dL (0.55-1.02) 06/21/25 04:40 Glucose 91 mg/dL (74-106) 06/21/25 04:40 Phosphorus 2.8 mg/dL (2.5-4.9) 06/21/25 04:40 Magnesium 2.0 mg/dL (1.6-2.4) 06/21/25 04:40 Total Bilirubin 0.5 mg/dL (0.2-1.0) 06/20/25 11:21 AST 17 U/L (15-37) 06/20/25 11:21 ALT 26 U/L (13-56) 06/20/25 11:21 Alkaline Phosphatase 84 U/L (45-117) 06/20/25 11:21 Triglycerides 92 mg/dL (<150) 06/21/25 04:40 Cholesterol 212 mg/dL (<200) H 06/21/25 04:40 HDL Cholesterol 62 mg/dL (40-60) H 06/21/25 04:40 Cholesterol/HDL Ratio 3.42 06/21/25 04:40 Lipase 28 U/L (13-75) 06/20/25 11:21 <Bozena Roberts - Last Filed: 06/21/25 15:26> Time spent managing pt's care (in minutes): 38 <Jamie Buck - Last Filed: 06/21/25 12:23> Physician Review: Patient Assessed, Agree with Above Assessment and Plan <Bozena Roberts - Last Filed: 06/21/25 15:26> Home Medications: Carvedilol [Coreg] 12.5 mg PO BID 06/20/25 Pantoprazole [Protonix Tab*] 40 mg PO PRN PRN 06/20/25 Meclizine HCl 25 mg PO Q6H PRN #25 tab 06/21/25 New Medications: Meclizine HCl 25 mg PO Q6H PRN #25 tab PRN Reason: Dizziness Physician Discharge Instructions: Patient was admitted to the hospital for dizziness/room spinning sensation. CT of her head was negative for acute findings. She was observed overnight in the hospital her troponins were negative x 3 with no significant arrhythmia on telemetry. This morning she feels totally better, no further room spinning sensation after receiving meclizine. She was ambulated around the nurses station in stable on her feet. She is counseled that she should follow-up with her primary care doctor, I will provide prescription for as needed meclizine and information on the Margret maneuver. NIH is 0, no residual neurological deficits. Please continue home medications as previously prescribed Follow-up with Dr. Denton in the clinic in the next 2 to 3 days. Followup: Gianfranco Denton MD [Primary Care Provider] - 2-3 Days
[2025-06-21 12:29] VITALS: BP 169/72; TEMP 98.2
== END 2025-06-21 13:55 | disposition home or self-care (01) | DRG 149 ==
LOC: ER 10:55 → ERHOLD 14:29 → 2ND 15:34
PROVIDERS: ADMIT Family Medicine; ATTEND Family Medicine
DX: R42 Dizziness and giddiness (principal); I25.10 Atherosclerotic heart disease of native coronary artery without angina pectoris; Z95.1 Presence of aortocoronary bypass graft; Z95.5 Presence of coronary angioplasty implant and graft; I10 Essential (primary) hypertension; Z88.1 Allergy status to other antibiotic agents; Z88.5 Allergy status to narcotic agent; Z88.8 Allergy status to other drugs, medicaments and biological substances; R51.9 Headache, unspecified; K59.00 Constipation, unspecified
CPT/HCPCS: 36415; 70450; 74018; 80048; 80053; 80061; 81003; 83036; 83690; 83735; 84100; 84439; 84443; 84484; 85025; 93005; 96361; 96374; 96375; 99285; J1650; J2405; J7030; J8597